=== PATIENT | male | born 1950 | race Two or more races ===

== ENCOUNTER → 2023-05-18 07:10 | Outpatient (REF) | payer MEDICARE, OTHER, SELFPAY ==
[2023-05-18 10:34] LABS: ALT (SGPT) 23 U/L (0-50); AST (SGOT) 24 U/L (17-59); Albumin 3.7 g/dl (3.5-5.0); Alkaline Phosphatase 47 U/L (38-126); Blood Urea Nitrogen 11 mg/dl (9-20); Calcium 9.2 mg/dl (8.4-10.2); Carbon Dioxide 31 mmol/L (22-30); Chloride 100 mmol/L (98-107); Glucose 103 mg/dl (70-99); Potassium 4.2 mmol/L (3.5-5.1); Sodium 138 mmol/L (135-145); Total Bilirubin 1.1 mg/dl (0.2-1.3); Total Protein 6.2 g/dl (6.3-8.2); eGFR > 60.00
[2023-05-18 10:37] LABS: % Basophils 0.4 % (0-2); % Eosinophils 4.8 % (0-6); % Immature Granulocytes 0.4 % (0-0.5); % Lymphocytes 38.8 % (20.5-51.1); % Monocytes 9.7 % (1.7-9.3); % Neutrophils 45.9 % (42.2-75.2); Absolute Eosinophils 0.4 10^3/uL (0-0.7); Absolute Lymphocytes 2.9 10^3/uL (1.2-3.4); Absolute Monocytes 0.7 10^3/uL (0.1-0.6); Absolute Neutrophils 3.5 10^3/uL (1.4-6.5); Hematocrit 47.9 % (39.0-52.0); Hemoglobin 16.1 g/dL (13.0-18.0); Mean Corp Hgb Conc. 33.6 g/dL (33.0-37.0); Mean Corpuscular Hgb 29.9 pg (27.0-31.0); Mean Corpuscular Volume 88.9 fL (80.0-94.0); Mean Platelet Volume 11.3 fL (7.4-10.4); Nucleated Red Blood Cells % 0 % (-); Platelet Count 135 10^3/uL (130-400); Red Blood Cell Count 5.39 10^6/uL (4.70-6.10); Red Cell Dist. Width 14.4 % (11.5-14.5); White Blood Cell Count 7.5 10^3/uL (4.8-10.8)
[2023-05-18 11:23] LABS: Erythrocyte Sed Rate 7 mm/hour (0-20)
== END ==
LOC: HWLAB 07:10
PROVIDERS: ATTENDING PHYSICIAN Internal Medicine Rheumatology; FAMILY PHYSICIAN Family Medicine
DX: M31.6 Other giant cell arteritis (principal)
CPT/HCPCS: 36415; 80053; 85025; 85652; 86140

== ENCOUNTER → 2023-06-05 09:34 | Outpatient (REF) | payer MEDICARE, OTHER, SELFPAY ==
[2023-06-05 14:05] LABS: PSA, Total - Diagnostic 2.38 ng/ml (0.0-4.0)
== END ==
LOC: HWLAB 09:34
PROVIDERS: ATTENDING PHYSICIAN Surgery; FAMILY PHYSICIAN Family Medicine
DX: Z12.5 Encounter for screening for malignant neoplasm of prostate (principal); N40.1 Benign prostatic hyperplasia with lower urinary tract symptoms
CPT/HCPCS: 36415; 84153

== ENCOUNTER → 2023-06-27 08:31 | Outpatient (REF) | payer MEDICARE, OTHER, SELFPAY | LOC: HWRAD 08:31 | PROVIDERS: ATTENDING PHYSICIAN Internal Medicine Critical Care Medicine; FAMILY PHYSICIAN Family Medicine | DX: Z87.891 Personal history of nicotine dependence (principal) | CPT/HCPCS: 71271 ==

== ENCOUNTER → 2023-10-06 06:41 | Outpatient (REF) | payer MEDICARE, OTHER, SELFPAY ==
[2023-10-06 10:14] LABS: % Basophils 0.4 % (0-2); % Eosinophils 4.4 % (0-6); % Immature Granulocytes 0.6 % (0-0.5); % Lymphocytes 36.2 % (20.5-51.1); % Monocytes 8.3 % (1.7-9.3); % Neutrophils 50.1 % (42.2-75.2); Absolute Eosinophils 0.3 10^3/uL (0-0.7); Absolute Immature Granulocytes 0.1 10^3/uL (0-0.05); Absolute Lymphocytes 2.8 10^3/uL (1.2-3.4); Absolute Monocytes 0.6 10^3/uL (0.1-0.6); Absolute Neutrophils 3.9 10^3/uL (1.4-6.5); Hematocrit 46.2 % (39.0-52.0); Hemoglobin 15.8 g/dL (13.0-18.0); Mean Corp Hgb Conc. 34.2 g/dL (33.0-37.0); Mean Corpuscular Hgb 30.2 pg (27.0-31.0); Mean Corpuscular Volume 88.3 fL (80.0-94.0); Mean Platelet Volume 11.1 fL (7.4-10.4); Nucleated Red Blood Cells % 0 % (-); Platelet Count 150 10^3/uL (130-400); Red Blood Cell Count 5.23 10^6/uL (4.70-6.10); Red Cell Dist. Width 14.1 % (11.5-14.5); White Blood Cell Count 7.7 10^3/uL (4.8-10.8)
[2023-10-06 10:27] LABS: Erythrocyte Sed Rate 7 mm/hour (0-20)
[2023-10-06 10:35] LABS: ALT (SGPT) 23 U/L (0-50); AST (SGOT) 26 U/L (17-59); Albumin 4.1 g/dl (3.5-5.0); Alkaline Phosphatase 53 U/L (38-126); Blood Urea Nitrogen 12 mg/dl (9-20); Calcium 9.2 mg/dl (8.4-10.2); Carbon Dioxide 28 mmol/L (22-30); Chloride 104 mmol/L (98-107); Glucose 101 mg/dl (70-99); Potassium 4.4 mmol/L (3.5-5.1); Sodium 139 mmol/L (135-145); Total Bilirubin 0.7 mg/dl (0.2-1.3); Total Protein 6.5 g/dl (6.3-8.2); eGFR > 60.00
[2023-10-06 10:37] LABS: C-Reactive Protein < 5.00 mg/L (0.0-10.00)
== END ==
LOC: HWLAB 06:41
PROVIDERS: ATTENDING PHYSICIAN Internal Medicine Rheumatology; FAMILY PHYSICIAN Family Medicine
DX: M31.6 Other giant cell arteritis (principal)
CPT/HCPCS: 36415; 80053; 85025; 85652; 86140

== ENCOUNTER → 2023-11-13 06:25 | Outpatient (REF) | payer MEDICARE, OTHER, SELFPAY ==
[2023-11-13 10:29] LABS: ALT (SGPT) 37 U/L (0-50); AST (SGOT) 47 U/L (17-59); Albumin 3.9 g/dl (3.5-5.0); Alkaline Phosphatase 53 U/L (38-126); Blood Urea Nitrogen 16 mg/dl (9-20); Calcium 9.1 mg/dl (8.4-10.2); Carbon Dioxide 30 mmol/L (22-30); Chloride 105 mmol/L (98-107); Glucose 91 mg/dl (70-99); HDL Cholesterol 51 mg/dl; LDL Cholesterol, Calculated 73 mg/dl; Potassium 4.4 mmol/L (3.5-5.1); Sodium 139 mmol/L (135-145); Total Bilirubin 0.6 mg/dl (0.2-1.3); Total Cholesterol 137 mg/dl (50-199); Total Protein 6.3 g/dl (6.3-8.2); Triglyceride 66 mg/dl (10-149); Very Low Density Lipoprotein 13 mg/dl (0-30); eGFR > 60.00
[2023-11-13 11:23] LABS: Glycohemoglobin (HgbA1c) 5.7 % (4.0-5.6)
== END ==
LOC: HWLAB 06:25
PROVIDERS: ATTENDING PHYSICIAN Family Medicine
DX: E78.2 Mixed hyperlipidemia (principal); R73.9 Hyperglycemia, unspecified
CPT/HCPCS: 36415; 80053; 80061; 83036

== ENCOUNTER 2024-01-18 21:09 | Emergency (ER) | payer MEDICARE, OTHER, SELFPAY ==
[2024-01-18 21:12] VITALS: BP 127/69
--- NOTE | 2024-01-18 22:07 | ED.GENMED ---
History of Present Illness
General
Chief Complaint: Heart Rate Problem
Source: patient
Exam Limitations: none
Time Seen by Provider: 01/18/24 21:35
Nursing documentation reviewed up to this point in time: agreed with
History of Present Illness
History of Present Illness:
Patient is a 73 old male with past medical history of paroxysmal A-fib hypertension hyperlipidemia presents to the ER for evaluation. Patient reports after dinner this evening he felt dizzy and took his pulse with his bp machine and pulse ox and
it was between 45 and 70. He reports he felt his heart beating' hard ,' but not fast. He denies any chest pain nausea vomiting shortness of breath.
Past History
Past History
ED Past Medical History: HTN, Hypercholesterolemia and Other (Morbidly obese); Negative CAD
ED Past Surgical History: Orthopedic (Low back)
Social History
Tobacco: Smoker
Alcohol: None
Drug: None
Personal:
Living: with family
Employment: Employed
Family History
Family History: Hypertension
Review of Systems
Review of Systems
Allergies reviewed?: Yes
All Other Systems: ROS reviewed and negative except as documented in HPI and ROS
Constitutional: Reports no symptoms; Denies fever
Respiratory: Reports no symptoms; Denies trouble breathing
Cardiac: Reports other (felt his heard beating 'hard' and 'pulse was slo' ); Denies chest pain
ABD/GI: Reports no symptoms
Musculoskeletal: Reports no symptoms
Skin: Reports no symptoms
Neurological: Reports no symptoms
Psychiatric: Reports no symptoms
Phy Exam
General Physical Exam
General Presentation: no apparent distress
General age: appears stated age
General Skin: warm and dry
General Habitus: normal
General Mental: alert
General Hydration: appears well hydrated
Eye Exam
Eye Exam: PERRL and EOMI
Cardiovascular Exam
Cardiovascular Exam: regular rate/rhythm, no murmur, normal peripheral pulses and other (Frequent PVCs)
Pulmonary Exam
Pulmonary Exam: lungs clear and no respiratory distress
Neurological Exam
Neurological Exam: alert and oriented x3
Musculoskeletal Exam
Musculoskeletal Exam: full ROM
Skin Exam
Skin Exam: normal color and warm/dry
Psychiatric Exam
Psychiatric Exam: normal mood/affect
Course
Orders/Labs/Results
Orders:
Orders
01/18/24 21:10
ECG [Electrocardiogram (*1)] Urgent
Reason for Study: Bradycardia / Tachycardia
Cardiology Consult: Unknown
01/18/24 21:11
EKG- Treatment ONCE
01/18/24 22:04
IV Insert/Care/Rem.- Treatment PRN
01/18/24 22:07
Cardiac Monitoring- Treatment ONCE
01/18/24 22:29
Complete Blood Count/With Diff Urgent
Comprehensive Metabolic Panel Urgent
TSH Urgent
Abnormal Lab Results
01/18/24
22:29
Absolute Monos (auto) 0.7 H 10^3/uL
(0.1-0.6)
Immature Gran % 0.6 H %
(0-0.5)
Neutrophils % 41.7 L %
(42.2-75.2)
Monocytes % 10.1 H %
(1.7-9.3)
Carbon Dioxide 31 H mmol/L
(22-30)
Glucose 113 H mg/dl
(70-99)
Total Protein 6.0 L g/dl
(6.3-8.2)
01/18/24 22:29
01/18/24 22:29
Vital Signs
Initial and Last Documented VS:
Initial Vital Signs
Temp Pulse Resp BP Pulse Ox
98.1 F 65 18 127/69 97
01/18/24 21:12 01/18/24 21:12 01/18/24 21:12 01/18/24 21:12 01/18/24 21:12
Last Documented Vital Signs
Temp Pulse Resp BP Pulse Ox
98.1 F 76 12 125/68 96
01/18/24 21:12 01/18/24 23:45 01/18/24 23:45 01/18/24 23:30 01/18/24 23:45
MDM/Problems Addressed
Differential Diagnosis Includes:
Not limited to arrhythmia, A-fib
MDM/Problems Addressed:
Patient is a 73-year-old male who present to the ER for evaluation. Patient reports he was having a pounding sensation of his heart beat however did not feel that his heartbeat was racing. He had no associated chest pain. Patient presents today
awake alert no acute distress he was found to be in bigeminy on my exam he had no chest pain. He is afebrile with normal white count stable hemoglobin, normal electrolytes including normal sodium and potassium. Patient isabel in no acute distress
on reexam patient is now in normal sinus rhythm and has remained in normal sinus rhythm.
Will DC with outpatient cardiology follow-up. Pt has hx of atrial fibrillation and is on Pradaxa.
Chronic conditions affecting care:
History of paroxysmal A-fib
*Pulse Oximetry
Patient hypoxic: no
*EKG
Interpreted by ED Provider?: Yes
Interpretation: normal
Comparison EKG: changes noted (pvcs now present )
Heart Rate: 76
Rate: normal
Rhythm: sinus and PVC's
Ischemia: no ischemia
*Critical Care Note
Total Time (30-74mins, 75-104mins- exclusive of procedures): Not Applicable
ED Attending Note
-
Portions of this chart may have been created with voice recognition software.� Occasional wrong word or��sound alike� substitutions may have occurred due to the inherent limitations of voice recognition software.
Discharge Plan
Departure
Patient Disposition: Home (Routine Discharge)
Date of Disposition: 01/19/24
Time of Disposition: 00:15
Patient with high blood pressure during this ER visit?: No
Condition: Fair
Covid-19: Not Applicable
Discharge Problem:
PVC (premature ventricular contraction)
Instructions: Ventricular premature beats
Prescriptions:
No Action
calcium carbonate-vitamin D3 [Oyster Shell Calcium-Vit D3] 500 MG tablet
1 tab PO DAILY
tamsulosin 0.4 MG capsule
0.4 mg PO BID
polyethylene glycol 3350 [Miralax] 17 gram Powder In Packet
17 g PO QPM
losartan 100 mg Tablet
100 mg PO BID
rosuvastatin 20 mg Tablet
20 mg PO DAILY
dabigatran etexilate [Pradaxa] 150 mg Capsule
150 mg PO BID
Actemra 162 MG/0.9 ML syringe
162 mg SQ Q3W
metoprolol succinate 50 mg tablet extended release 24 hr
50 mg PO BID
pantoprazole [Protonix] 40 mg tablet,delayed release (DR/EC)
40 mg PO BID Qty: 60 0RF
pantoprazole 40 mg tablet,delayed release (DR/EC)
40 mg PO BID 14 Days Qty: 28 0RF
sucralfate [Carafate] 100 mg/mL suspension
10 ml PO QID Qty: 1000 0RF
Referrals:
Caleb Morgan MD [Family Provider] -
Sae Palomo MD [Active] -
Activity Restrictions/Additional Instructions:
As discussed you are having premature ventricular contractions which was the cause of your symptoms however that has since resolved. Please call your patient services assistant office tomorrow morning for an appointment for reevaluation the next several days and
return if any worsening of symptoms.
Interventions
Interventions:
*Risk Screen - Suicide Last Done: 01/18/24 21:11
*General Assessment Last Done: 01/18/24 21:12
*Neglect/Abuse Screening Last Done: 01/18/24 21:12
ED- Fall Risk Assessment Last Done: 01/18/24 22:31
*ED COVID-19 Vaccine History Last Done: 01/18/24 22:31
ED- Cardiac Assessment Last Done: 01/18/24 22:31
ED- Pulmonary Assessment Last Done: 01/18/24 22:31
Discharge Date and Time
Print Language: LAO
[2024-01-18 22:30] VITALS: BP 124/58
[2024-01-18 22:31] VITALS: BMI 33.4
[2024-01-18 22:50] LABS: % Basophils 0.3 % (0-2); % Eosinophils 3.4 % (0-6); % Immature Granulocytes 0.6 % (0-0.5); % Lymphocytes 43.9 % (20.5-51.1); % Monocytes 10.1 % (1.7-9.3); % Neutrophils 41.7 % (42.2-75.2); Absolute Eosinophils 0.2 10^3/uL (0-0.7); Absolute Lymphocytes 2.8 10^3/uL (1.2-3.4); Absolute Monocytes 0.7 10^3/uL (0.1-0.6); Absolute Neutrophils 2.7 10^3/uL (1.4-6.5); Hematocrit 42.8 % (39.0-52.0); Hemoglobin 14.8 g/dL (13.0-18.0); Mean Corp Hgb Conc. 34.6 g/dL (33.0-37.0); Mean Corpuscular Hgb 29.2 pg (27.0-31.0); Mean Corpuscular Volume 84.4 fL (80.0-94.0); Nucleated Red Blood Cells % 0 % (-); Platelet Count 175 10^3/uL (130-400); Red Blood Cell Count 5.07 10^6/uL (4.70-6.10); Red Cell Dist. Width 13.8 % (11.5-14.5); White Blood Cell Count 6.5 10^3/uL (4.8-10.8)
[2024-01-18 23:00] VITALS: BP 112/56
[2024-01-18 23:13] LABS: ALT (SGPT) 23 U/L (0-50); AST (SGOT) 27 U/L (17-59); Albumin 3.7 g/dl (3.5-5.0); Alkaline Phosphatase 51 U/L (38-126); Blood Urea Nitrogen 17 mg/dl (9-20); Calcium 9.2 mg/dl (8.4-10.2); Carbon Dioxide 31 mmol/L (22-30); Chloride 102 mmol/L (98-107); Estimated Creatinine Clearance 87 ml/min; Glucose 113 mg/dl (70-99); Potassium 4.2 mmol/L (3.5-5.1); Sodium 139 mmol/L (135-145); Total Bilirubin 0.4 mg/dl (0.2-1.3); eGFR > 60.00
[2024-01-18 23:30] VITALS: BP 125/68
[2024-01-18 23:43] LABS: TSH 1.22 uIU/ml (0.47-4.68)
[2024-01-19] VITALS: BP 113/61
[2024-01-19 00:30] VITALS: BP 131/73
== END 2024-01-19 01:32 | disposition home or self-care (01) ==
LOC: EMR 21:09
PROVIDERS: Nurse Practitioner; EMERGENCY PHYSICIAN Emergency Medicine; FAMILY PHYSICIAN Family Medicine
DX: I49.3 Ventricular premature depolarization (principal); I48.0 Paroxysmal atrial fibrillation; I10 Essential (primary) hypertension; E78.00 Pure hypercholesterolemia, unspecified; E66.01 Morbid (severe) obesity due to excess calories; F17.200 Nicotine dependence, unspecified, uncomplicated; Z79.01 Long term (current) use of anticoagulants; Z82.49 Family history of ischemic heart disease and other diseases of the circulatory system
CPT/HCPCS: 99283; 80053; 84443; 85025; 93005

== ENCOUNTER 2024-01-22 12:04 | Emergency (ER) | payer MEDICARE, OTHER, SELFPAY ==
[2024-01-22 12:10] VITALS: BP 125/64
[2024-01-22 12:34] VITALS: BMI 33.9
--- NOTE | 2024-01-22 12:37 | ED.GENMED ---
History of Present Illness
General
Chief Complaint: Heart Rate Problem
Source: patient
Exam Limitations: none
Time Seen by Provider: 01/22/24 12:23
Nursing documentation reviewed up to this point in time: agreed with
History of Present Illness
History of Present Illness:
73-year-old male presents emergency room complaining of low heart rate and dizziness. He states his vision has been blurry occasionally. He denies chest pain but complains of shortness of breath with minimal activity. He came 3 days ago for same
complaint, and followed up with Dr. Palomo. He arranged a nuclear stress test, and placed a 7-day cardiac cath tech.
Past History
Past History
ED Past Medical History: HTN, Hypercholesterolemia and Other (Morbidly obese); Negative CAD
ED Past Surgical History: Orthopedic (Low back)
Social History
Tobacco: Smoker
Alcohol: None
Drug: None
Personal:
Living: with family
Employment: Employed
Family History
Family History: Hypertension
Review of Systems
Review of Systems
Allergies reviewed?: Yes
All Other Systems: Not applicable
Constitutional: Reports no symptoms
EENT: Reports no symptoms
Respiratory: Reports trouble breathing
Cardiac: Reports palpitations
ABD/GI: Reports no symptoms
: Reports no symptoms
Musculoskeletal: Reports no symptoms
Skin: Reports no symptoms
Neurological: Reports no symptoms
Endocrine: Reports no symptoms
Hematologic/Lymphatic: Reports no symptoms
Psychiatric: Reports no symptoms
Phy Exam
Physical Exam
Physical Exam:
Physical Exam
General: no apparent distress, not acutely ill
Neck: supple. no meningeal signs. normal posterior pharynx
Heart: s1/s2 regular rate and rhythm, no murmur. equal radial
pulses.
HEENT: Pupils equal round reactive to light, EOMI
Lungs: no acute respiratory distress. clear bilaterally
Abdomen: normal bowel sounds. not tender. no CVAT
Neuro: alert and oriented. no focal neurological deficits cranial nerves II through XII intact
Skin: no rash
Psychiatric: well kept. interactive and cooperative
Extremities: no edema. no calf tenderness. negative homans. good distal pulses
Course
Orders/Labs/Results
Orders:
Orders
01/22/24 12:04
Electrocardiogram (*1) Urgent
Reason for Study: Bradycardia / Tachycardia
EKG- Treatment ONCE
01/22/24 12:35
CR Chest - 2 Views Urgent
Comment:
Reason For Exam: short of breath
01/22/24 12:36
IV Insert/Care/Rem.- Treatment PRN
01/22/24 12:42
CMP [Comprehensive Metabolic Panel] Urgent
Complete Blood Count/With Diff Urgent
Magnesium Urgent
Pro-BNP [NT-proBNP] Urgent
Troponin I Urgent
Abnormal Lab Results
01/22/24
12:42
MPV 10.7 H fL
(7.4-10.4)
Glucose 135 H mg/dl
(70-99)
Total Protein 6.1 L g/dl
(6.3-8.2)
01/22/24 12:42
01/22/24 12:42
Vital Signs
Initial and Last Documented VS:
Initial Vital Signs
Temp Pulse Resp BP Pulse Ox
99.7 F 41 18 125/64 98
01/22/24 12:10 01/22/24 12:10 01/22/24 12:10 01/22/24 12:10 01/22/24 12:10
Last Documented Vital Signs
Temp Pulse Resp BP Pulse Ox
99.7 F 64 12 108/69 98
01/22/24 12:10 01/22/24 14:43 01/22/24 14:43 01/22/24 15:00 01/22/24 12:10
MDM/Problems Addressed
Differential Diagnosis Includes:
Dysrhythmia, PVCs
MDM/Problems Addressed:
73-year-old male with PVCs, unclear etiology. Discussed with cardiology, who will perform nuclear stress test on Monday.
Chronic conditions affecting care: HTN and Arrhythmia
Acute Exacerbation and/or Progression of Chronic Illness: HTN and Arrhythmia
*Radiology
Radiology exam reviewed: radiology read reviewed (Chest x-ray no acute findings)
*Pulse Oximetry
Patient hypoxic: no
*EKG
Interpreted by ED Provider?: Yes
EKG Intrepretation Date: 01/22/24
EKG Intrepretation Time: 12:07
Interpretation: abnormal
Comparison EKG: no changes
Heart Rate: 85
Rate: normal
Rhythm: sinus and PVC's
[place]: normal axis
Interval: normal interval
QRS Pattern: normal QRS
Ischemia: no ischemia
*Sonar Technician Interpretation
Rate: normal
Interpretation: abnormal
Heart Rate: 75
Rhythm: sinus and PVC's
*Critical Care Note
Total Time (30-74mins, 75-104mins- exclusive of procedures): Not Applicable
Patient Management
Social determinants of health affecting care: Living situation
Discussion with other providers: Vocational Trainer (Dr. More, production analyst)
Escalation/DeEscalation of care consider admission/obs:
Admit not indicated
ED Attending Note
-
Portions of this chart may have been created with voice recognition software.� Occasional wrong word or��sound alike� substitutions may have occurred due to the inherent limitations of voice recognition software.
Discharge Plan
Departure
Patient Disposition: Home (Routine Discharge)
Date of Disposition: 01/22/24
Time of Disposition: 15:17
Patient with high blood pressure during this ER visit?: No
Condition: Good
Discharge Problem:
Frequent PVCs
Instructions: Ventricular premature beats, Palpitations (DC), BLOOD PRESSURE
Prescriptions:
No Action
calcium carbonate-vitamin D3 [Oyster Shell Calcium-Vit D3] 500 MG tablet
1 tab PO DAILY
tamsulosin 0.4 MG capsule
0.4 mg PO BID
polyethylene glycol 3350 [Miralax] 17 gram Powder In Packet
17 g PO QPM
losartan 100 mg Tablet
100 mg PO BID
rosuvastatin 20 mg Tablet
20 mg PO DAILY
dabigatran etexilate [Pradaxa] 150 mg Capsule
150 mg PO BID
Actemra 162 MG/0.9 ML syringe
162 mg SQ Q3W
metoprolol succinate 50 mg tablet extended release 24 hr
50 mg PO BID
pantoprazole [Protonix] 40 mg tablet,delayed release (DR/EC)
40 mg PO BID Qty: 60 0RF
pantoprazole 40 mg tablet,delayed release (DR/EC)
40 mg PO BID 14 Days Qty: 28 0RF
sucralfate [Carafate] 100 mg/mL suspension
10 ml PO QID Qty: 1000 0RF
Referrals:
Caleb Morgan MD [Family Provider] -
Activity Restrictions/Additional Instructions:
-Your stress test has been rescheduled from 02/05/24 to this 01/24/24 at 7:30 AM in the cardiac services department at [facility]. Please note the location change. Please arrive in the main lobby and register about 15 minutes
before your test.
-Do NOT consume ANY caffeine for 24 hours prior to test.
-Do not eat or drink on the morning of the test except sips of water for taking your medications.
-Try not to take metoprolol (Lopressor) the night before or morning of the test, this will help you reach your target heart rate on the treadmill.
Interventions
Interventions:
*Risk Screen - Suicide Last Done: 01/22/24 13:13
*General Assessment Last Done: 01/22/24 13:13
*Neglect/Abuse Screening Last Done: 01/22/24 13:13
ED- Fall Risk Assessment Last Done: 01/22/24 12:35
*ED COVID-19 Vaccine History Last Done: 01/22/24 12:34
*Nursing Disposition Last Done: 01/22/24 15:42
ED- Cardiac Assessment Last Done: 01/22/24 12:47
ED- Pulmonary Assessment Last Done: 01/22/24 12:47
Discharge Date and Time
Discharge Date/Time: 01/22/24 15:45
Print Language: SAMMARINESE
[2024-01-22 13:00] VITALS: BP 105/71
[2024-01-22 13:07] LABS: ALT (SGPT) 31 U/L (0-50); AST (SGOT) 38 U/L (17-59); Albumin 3.8 g/dl (3.5-5.0); Alkaline Phosphatase 45 U/L (38-126); Blood Urea Nitrogen 15 mg/dl (9-20); Calcium 8.7 mg/dl (8.4-10.2); Carbon Dioxide 24 mmol/L (22-30); Chloride 105 mmol/L (98-107); Estimated Creatinine Clearance 98 ml/min; Glucose 135 mg/dl (70-99); Magnesium 1.9 mg/dl (1.6-2.3); Potassium 4.3 mmol/L (3.5-5.1); Sodium 140 mmol/L (135-145); Total Bilirubin 0.4 mg/dl (0.2-1.3); Total Protein 6.1 g/dl (6.3-8.2); eGFR > 60.00
[2024-01-22 13:10] VITALS: BP 105/71
[2024-01-22 13:17] LABS: NT-proBNP 1000 pg/ml; Troponin I < 0.012 ng/ml
[2024-01-22 13:28] LABS: % Basophils 0.5 % (0-2); % Eosinophils 4.2 % (0-6); % Immature Granulocytes 0.5 % (0-0.5); % Lymphocytes 38.4 % (20.5-51.1); % Monocytes 8.4 % (1.7-9.3); Absolute Eosinophils 0.3 10^3/uL (0-0.7); Absolute Lymphocytes 2.5 10^3/uL (1.2-3.4); Absolute Monocytes 0.5 10^3/uL (0.1-0.6); Absolute Neutrophils 3.1 10^3/uL (1.4-6.5); Hematocrit 45.1 % (39.0-52.0); Hemoglobin 15.5 g/dL (13.0-18.0); Mean Corp Hgb Conc. 34.4 g/dL (33.0-37.0); Mean Corpuscular Hgb 29.4 pg (27.0-31.0); Mean Corpuscular Volume 85.6 fL (80.0-94.0); Mean Platelet Volume 10.7 fL (7.4-10.4); Nucleated Red Blood Cells % 0 % (-); Platelet Count 169 10^3/uL (130-400); Red Blood Cell Count 5.27 10^6/uL (4.70-6.10); Red Cell Dist. Width 13.8 % (11.5-14.5); White Blood Cell Count 6.4 10^3/uL (4.8-10.8)
[2024-01-22 14:00] VITALS: BP 110/71
[2024-01-22 15:00] VITALS: BP 108/69
== END 2024-01-22 15:45 | disposition home or self-care (01) ==
LOC: EMR 12:04
PROVIDERS: Emergency Medicine; EMERGENCY PHYSICIAN Emergency Medicine; FAMILY PHYSICIAN Family Medicine
DX: I49.3 Ventricular premature depolarization (principal); R00.1 Bradycardia, unspecified; R42 Dizziness and giddiness; I10 Essential (primary) hypertension; E78.00 Pure hypercholesterolemia, unspecified; E66.01 Morbid (severe) obesity due to excess calories; F17.200 Nicotine dependence, unspecified, uncomplicated; Z82.49 Family history of ischemic heart disease and other diseases of the circulatory system
CPT/HCPCS: 99283; 71046; 80053; 83735; 83880; 84484; 85025; 93005

== ENCOUNTER → 2024-01-24 07:22 | Outpatient (REF) | payer MEDICARE, OTHER, SELFPAY | LOC: RCS 07:22 | PROVIDERS: ATTENDING PHYSICIAN Internal Medicine Cardiovascular Disease; FAMILY PHYSICIAN Family Medicine | DX: I48.0 Paroxysmal atrial fibrillation (principal) | CPT/HCPCS: 78452; 93017; A9500; J2785 ==

== ENCOUNTER 2024-02-08 10:30 | Inpatient (IN) | payer MEDICARE, OTHER, SELFPAY ==
[2024-02-05] VITALS (9 sets, daily range): BP systolic 114–140; BP diastolic 57–82; BMI 32.6
--- NOTE | 2024-02-05 12:14 | ED.GENMED ---
History of Present Illness
<Tita Valdovinos MD, Resident - Last Filed: 02/05/24 13:58>
General
Chief Complaint: Chest Pain
Source: patient and family
Exam Limitations: none
Time Seen by Provider: 02/05/24 11:56
Nursing documentation reviewed up to this point in time: agreed with
Travel History
Have you traveled to any high risk areas for coronavirus over the past 14 days?: No
Have you had any contact with someone who has COVID-19?: No
Do you have any symptoms of coronavirus? Fever > 100 degrees, chills, cough, shortness of breath, sore throat, loss of taste or smell, muscle aches, or headache?: No
History of Present Illness
History of Present Illness:
73-year-old male with PMHx significant forAtrial fibrillation, hypertension, hyperlipidemia, LAI on CPAP, BPH, nephrolithiasis presents to the hospital for 3 weeks onset of chest pain and shortness of breath. He was in the ER 3 weeks ago for
similar complaints. He describes his chest pain as midsternal pressure radiating into his left chest for about 8/10 in intensity, and as of 10 pounds sitting on his chest. His chest pain does not radiate into the jaw or left arm. It is associated
with exertional dyspnea which worsens upon minimal exertion, and occasional heart racing. He also had dizziness over the last 3 days, occasional blurring of vision when his symptoms persist for longer time. He noticed to have some orthopnea and
PND over the last 3 weeks beginning the onset of his symptoms.
Prior to this 3 weeks he never had any shortness of breath or chest pain.
Of note during his most recent ER visit he was seen by coal mill operator and was evaluated with nuclear stress test which was classified as a moderate risk study.
He denies having any weakness, fevers, chills, paresthesias, nausea, vomiting.
Past History
<Tita Valdovinos MD, Resident - Last Filed: 02/05/24 13:58>
Past History
ED Past Medical History: HTN, Hypercholesterolemia and Other (Morbidly obese); Negative CAD
ED Past Surgical History: Orthopedic (Low back)
Social History
Tobacco: Smoker (2 packs of cigarettes for 30 years, 7 to 8 cigarettes per last 20 years.)
Alcohol: None
Drug: None
Personal:
Living: with family
Employment: Employed
Family History
Family History: Hypertension
Review of Systems
<Tita Valdovinos MD, Resident - Last Filed: 02/05/24 13:58>
Review of Systems
Allergies reviewed?: Yes
Other source history: other (Friend on bedside.)
Constitutional: Reports fatigue; Denies fever or chills
EENT: Reports no symptoms
Respiratory: Reports trouble breathing
Cardiac: Reports chest pain, diaphoresis and palpitations
ABD/GI: Reports no symptoms
: Reports no symptoms
Musculoskeletal: Reports no symptoms
Skin: Reports no symptoms
Neurological: Reports dizzy
Endocrine: Reports no symptoms
Hematologic/Lymphatic: Reports no symptoms
Psychiatric: Reports no symptoms
Phy Exam
<Tita Valdovinos MD, Resident - Last Filed: 02/05/24 13:58>
General Physical Exam
General Presentation: well appearing and no apparent distress
General Skin: warm
General Habitus: normal
General Mental: alert
ENT Exam
ENT Exam: EOMI and TM's normal
Eye Exam
Eye Exam: PERRL and EOMI
Cardiovascular Exam
Cardiovascular Exam: no edema, no gallop, no JVD, no murmur and occasionally irregular
Heart Sounds: normal
MARYLOU Score
Is patient's age greater than or equal to 65 years: Yes
Does patient have 3 or more CAD risk factors?: Yes
Does patient have known CAD: No
Has patient used ASA in past seven days?: Yes
Has patient had severe angina in past 24 hrs?: Yes
Are patient's cardiac markers elevated?: No
Are there ST changes greater 0.05mm?: No
Result score?: 4
Pulmonary Exam
Pulmonary Exam: lungs clear, no rales, no rhonchi and other (crackles present)
Breath Sounds: Crackles: left lower and right lower
Gastrointestinal Exam
Gastrointestinal Exam: normal bowel sounds, non tender, soft and non distended
Palpation: generalized: No tenderness
Neurological Exam
Neurological Exam: alert, oriented x3, CN II-XII intact, no motor deficits, normal reflexs and no sensory deficits
NIH Stroke Score
Level of Consciousness: 0 - Alert
LOC questions: 0-Answers both correctly
LOC Commands: 0-Performs both correctly
Best Gaze: 0-Normal
Visual Justice: 0=Normal, no visual loss
Facial palsy: 0=Normal, symmetrical
Motor - Left Arm: 0=No drift 10 seconds
Motor - Right Le-No drift 5 seconds
Motor - Left Le-No drift 5 seconds
Limb Ataxia: 0-Absent
Sensation: 0-Normal
Best Language: 0-No aphasia
Dysarthria: 0-Normal
Extinction and Inattention: 0-No abnormality
Scores
<Tita Valdovinos MD, Resident - Last Filed: 02/05/24 13:58>
NIH Stroke Score
Level of Consciousness: 0 - Alert
LOC Questions: 0-Answers both correctly
LOC Commands: 0-Performs both correctly
Best Horizontal Gaze: 0-Normal
Visual Justice: 0=Normal, no visual loss
Facial Palsy: 0=Normal, symmetrical
Motor - Right Arm: 0=No drift 10 seconds
Motor - Left Arm: 0=No drift 10 seconds
Motor - Right Le-No drift 5 seconds
Motor - Left Le-No drift 5 seconds
Limb Ataxia: 0-Absent
Sensation: 0-Normal
Best Language: 0-No aphasia
Dysarthria: 0-Normal
Extinction and Inattention: 0-No abnormality
Total Score:: 0
Heart Score for Chest Pain Patients
STEMI patient?: No
History: Highly Suspicious
ECG: Nonspecific Repolarization
Age: >/= 65 years
Risk Factors: >/= 3 Risk Factors or History of CAD
Troponin: </= Normal Limit
Heart Score for Chest Pain Patients: 7
Heart Score Risk: 72.7 % MACE over next 6 weeks
Course
<Tita Valdovinos MD, Resident - Last Filed: 02/05/24 13:58>
Orders/Labs/Results
Orders:
Orders
02/05/24 11:05
ECG [Electrocardiogram (*1)] Urgent
Reason for Study: Chest Pain
EKG- Treatment ONCE
02/05/24 11:59
CMP [Comprehensive Metabolic Panel] Urgent
Complete Blood Count/With Diff Urgent
NT-proBNP Urgent
Comment: ADD ON
Troponin I Urgent
02/05/24 12:43
Cardiac Monitoring- Treatment ONCE
CR Chest - 2 Views Urgent
Comment:
Reason For Exam: b/l Crackles on auscultation
02/05/24 12:45
NT-proBNP Urgent
02/05/24 12:52
Add On- LAB Urgent
Tests Added?: pro-BNP
02/05/24 15:58
Troponin I Urgent
Abnormal Lab Results
02/05/24
11:59
Monocytes % 9.5 H %
(1.7-9.3)
Glucose 115 H mg/dl
(70-99)
02/05/24 11:59
02/05/24 11:59
Vital Signs
Initial and Last Documented VS:
Initial Vital Signs
Temp Pulse Resp BP Pulse Ox
98.5 F 51 20 133/68 99
02/05/24 11:10 02/05/24 11:10 02/05/24 11:10 02/05/24 11:10 02/05/24 11:10
Last Documented Vital Signs
Temp Pulse Resp BP Pulse Ox
98.5 F 94 18 124/62 98
02/05/24 11:10 02/05/24 12:45 02/05/24 12:45 02/05/24 12:00 02/05/24 12:45
Comment
Comment:
Highly likely to be unstable angina.
Several risk factors-greater than 47-dngu-hbns smoking history, hypertension, hyperlipidemia.
PVCs with ventricular bigeminy on EKG.
Troponins and proBNP pending.
Recent nuclear stress test-moderate risk for MO.
<Car Rodriguez MD - Last Filed: 02/05/24 13:34>
Orders/Labs/Results
Orders:
Orders
02/05/24 11:05
ECG [Electrocardiogram (*1)] Urgent
Reason for Study: Chest Pain
EKG- Treatment ONCE
02/05/24 11:59
CMP [Comprehensive Metabolic Panel] Urgent
Complete Blood Count/With Diff Urgent
NT-proBNP Urgent
Comment: ADD ON
Troponin I Urgent
02/05/24 12:43
Cardiac Monitoring- Treatment ONCE
CR Chest - 2 Views Urgent
Comment:
Reason For Exam: b/l Crackles on auscultation
02/05/24 12:45
NT-proBNP Urgent
02/05/24 12:52
Add On- LAB Urgent
Tests Added?: pro-BNP
02/05/24 15:58
Troponin I Urgent
Abnormal Lab Results
02/05/24
11:59
Monocytes % 9.5 H %
(1.7-9.3)
Glucose 115 H mg/dl
(70-99)
02/05/24 11:59
02/05/24 11:59
Vital Signs
Initial and Last Documented VS:
Initial Vital Signs
Temp Pulse Resp BP Pulse Ox
98.5 F 51 20 133/68 99
02/05/24 11:10 02/05/24 11:10 02/05/24 11:10 02/05/24 11:10 02/05/24 11:10
Last Documented Vital Signs
Temp Pulse Resp BP Pulse Ox
98.5 F 94 18 124/62 98
02/05/24 11:10 02/05/24 12:45 02/05/24 12:45 02/05/24 12:00 02/05/24 12:45
<Tita Valdovinos MD, Resident - Last Filed: 02/05/24 13:58>
MDM/Problems Addressed
Differential Diagnosis Includes:
Unstable angina.
MDM/Problems Addressed:
Patient took Pradaxa in the morning today.
Chronic conditions affecting care: HTN, Arrhythmia and COPD
<Tita Valdovinos MD, Resident - Last Filed: 02/05/24 13:58>
*Radiology
Radiology exam reviewed: preliminary read by ED provider and radiology read reviewed
*Pulse Oximetry
Patient hypoxic: no
*EKG
Interpreted by ED Provider?: Yes
EKG Intrepretation Date: 02/05/24
EKG Intrepretation Time: 12:00
Interpretation: abnormal
Comparison EKG: changes noted
Heart Rate: 100
Rate: tachycardiac
Rhythm: PVC's
Nicholls: normal axis
Interval: normal interval
QRS Pattern: normal QRS
Ischemia: no ischemia
*Director Of Student Life Interpretation
Rate: tachycardiac
Interpretation: abnormal
Heart Rate: 108
Rhythm: PVC's
*Critical Care Note
Total Time (30-74mins, 75-104mins- exclusive of procedures): Not Applicable
Data Reviewed
Review of Other/Old Records Reveals: Labs, Records, Radiology Studies and Testing
Source: patient, records and other (Friend.)
<Tita Valdovinos MD, Resident - Last Filed: 02/05/24 13:58>
Comment
Comment:
Unstable angina. Admit to the hospital.
ED Attending Note
<Tita Valdovinos MD, Resident - Last Filed: 02/05/24 13:58>
-
Portions of this chart may have been created with voice recognition software.� Occasional wrong word or��sound alike� substitutions may have occurred due to the inherent limitations of voice recognition software.
<Car Rodriguez MD - Last Filed: 02/05/24 13:34>
ED Attending Note
Patient seen and examined by attending physician: Yes
I performed a history and physical exam of patient and discussed management with resident, I reviewed resident's note and agree with documented findings and plan of care.: Yes
ED Attending Note:
Patient with progressive shortness of breath with exertion and chest tightness with exertion. Had a indeterminant nuclear stress test recently. Minimal to no symptoms at rest.
Multiple cardiac risk factors including hypertension cholesterol family history and smoking
On exam patient is nontoxic in no distress. Lungs have some bibasilar rales. Heart regular rate and rhythm. Abdomen warm and dry. Extremities warm and dry. Grossly nonfocal.
EKG with bigeminy. No acute findings.
Impression history is very concerning for unstable angina. Progressive shortness of breath with exertion and chest tightness with exertion. Will admit for further care and cardiac evaluation
Discharge Plan
Departure
Patient Disposition: Admit
Date of Disposition: 02/05/24
Time of Disposition: 13:57
Presentation/result/management discussed w/ accepting MD/DO: Hospitalist
Discharge Problem:
Angina pectoris, unstable
Prescriptions:
No Action
calcium carbonate-vitamin D3 [Oyster Shell Calcium-Vit D3] 500 MG tablet
1 tab PO DAILY
tamsulosin 0.4 MG capsule
0.4 mg PO BID
polyethylene glycol 3350 [Miralax] 17 gram Powder In Packet
17 g PO QPM
losartan 100 mg Tablet
100 mg PO BID
rosuvastatin 20 mg Tablet
20 mg PO DAILY
dabigatran etexilate [Pradaxa] 150 mg Capsule
150 mg PO BID
Actemra 162 MG/0.9 ML syringe
162 mg SQ Q3W
metoprolol succinate 50 mg tablet extended release 24 hr
50 mg PO BID
pantoprazole [Protonix] 40 mg tablet,delayed release (DR/EC)
40 mg PO BID Qty: 60 0RF
pantoprazole 40 mg tablet,delayed release (DR/EC)
40 mg PO BID 14 Days Qty: 28 0RF
sucralfate [Carafate] 100 mg/mL suspension
10 ml PO QID Qty: 1000 0RF
Referrals:
Caleb Morgan MD [Family Provider] -
Interventions
Interventions:
*Risk Screen - Suicide Last Done: 02/05/24 11:10
*General Assessment Last Done: 02/05/24 11:53
*Neglect/Abuse Screening Last Done: 02/05/24 11:10
ED- Fall Risk Assessment Last Done: 02/05/24 11:53
*ED COVID-19 Vaccine History Last Done: 02/05/24 11:10
ED- Cardiac Assessment Last Done: 02/05/24 11:53
Discharge Date and Time
Print Language: [place]
[2024-02-05 12:15] LABS: % Basophils 0.3 % (0-2); % Eosinophils 3.5 % (0-6); % Immature Granulocytes 0.5 % (0-0.5); % Monocytes 9.5 % (1.7-9.3); % Neutrophils 58.2 % (42.2-75.2); Absolute Eosinophils 0.2 10^3/uL (0-0.7); Absolute Lymphocytes 1.8 10^3/uL (1.2-3.4); Absolute Monocytes 0.6 10^3/uL (0.1-0.6); Absolute Neutrophils 3.8 10^3/uL (1.4-6.5); Hematocrit 43.4 % (39.0-52.0); Hemoglobin 14.9 g/dL (13.0-18.0); Mean Corp Hgb Conc. 34.3 g/dL (33.0-37.0); Mean Corpuscular Hgb 29.2 pg (27.0-31.0); Mean Corpuscular Volume 85.1 fL (80.0-94.0); Mean Platelet Volume 10.4 fL (7.4-10.4); Nucleated Red Blood Cells % 0 % (-); Platelet Count 148 10^3/uL (130-400); Red Cell Dist. Width 13.7 % (11.5-14.5); White Blood Cell Count 6.5 10^3/uL (4.8-10.8)
[2024-02-05 12:42] LABS: ALT (SGPT) 19 U/L (0-50); AST (SGOT) 22 U/L (17-59); Albumin 4.1 g/dl (3.5-5.0); Alkaline Phosphatase 47 U/L (38-126); Blood Urea Nitrogen 14 mg/dl (9-20); Calcium 9.4 mg/dl (8.4-10.2); Carbon Dioxide 24 mmol/L (22-30); Chloride 105 mmol/L (98-107); Estimated Creatinine Clearance 96 ml/min; Glucose 115 mg/dl (70-99); Potassium 4.1 mmol/L (3.5-5.1); Sodium 139 mmol/L (135-145); Total Bilirubin 0.7 mg/dl (0.2-1.3); Total Protein 6.5 g/dl (6.3-8.2); eGFR > 60.00
[2024-02-05 12:45] LABS: Troponin I < 0.012 ng/ml
[2024-02-05 13:58] LABS: NT-proBNP 295 pg/ml
--- NOTE | 2024-02-05 14:22 | HPS.HSE ---
Family Physician
-
Family Physician: aCleb Morgan
Chief Complaint
-
Chest Pressure and Shortness of Breath
History of Present Illness
Patient is a 73 y/o male past medical history of a-fib, hypertension, hyperlipidemia, and prediabetes who presents with persistent chest pressure and shortness of breath. This is patient's third ED visit this month for chest pressure and shortness
of breath. Since his prior visits he has seen his mixing machine tender cork rod who had him wear a heart monitor which revealed frequent PVCs and some episodes of atrial tachycardia, and he had a lexiscan stress test on January 23 which was negative ischemia.
However patient reports worsening symptoms particularly increasing dyspnea on exertion and worsening chest pressure with activity. He denies sharp chest pains, or increased lower extremity edema.
Medical History
Past Medical History
Past Medical History: Reports Other
Additional Past Medical History:
Paroxysmal Atrial Fibrillation
Essential Hypertension
Hyperlipidemia
Prediabetes
Giant Cell Arteritis
COPD
BPH
GERD
Past Surgical History: Reports Other
Additional Past Surgical History:
Temporal Artery Biopsy
Lower Back Surgery
Social History
Tobacco: Smoker (2 packs a day for about 30 years, but cut down to about 5 cigarettes a day, and notes his last cigarette was 5 day ago )
Family History
Family History: Hypertension
Allergies / Home Medications
Allergies reflects when Allergies were last updated in [facility].
Home Medications with original date entered in [facility]
Allergy/Medication List:
Allergies
Allergy/AdvReac Type Severity Reaction Status Date / Time
No Known Allergies Allergy Verified 02/05/24 11:16
Home Medications
tamsulosin 0.4 mg capsule 0.4 mg PO BID Urinary issue 02/17/21
dabigatran etexilate 150 mg capsule (Pradaxa) 150 mg PO BID Blood Clot Prevention/Tx 01/23/23
acetaminophen 325 mg tablet (Tylenol) 650 mg PO Q6HPRN PRN headaches 02/05/24
diltiazem HCl 240 mg capsule,24 hr,extended release 240 mg PO DAILY 02/05/24
ezetimibe 10 mg tablet (Zetia) 10 mg PO QPM 02/05/24
finasteride 5 mg tablet 5 mg PO DAILY 02/05/24
pantoprazole 40 mg tablet,delayed release (Protonix) 40 mg PO DAILY 02/05/24
rosuvastatin 10 mg tablet (Crestor) 10 mg PO QPM 02/05/24
Review of Systems
-
A 12 point ROS was completed and negative except as noted: Yes
Constitutional: Denies Fever or Chills
Respiratory: Reports Trouble Breathing; Denies Cough
Cardiac: Reports Chest Pain and Palpitations
Physical Exam
Vital Signs
Vital Signs
Temp Pulse Resp BP Pulse Ox
98.5 F 91 27 130/57 99
02/05/24 11:10 02/05/24 14:06 02/05/24 14:06 02/05/24 14:06 02/05/24 14:06
Physical Exam
General: Well Developed and Well Nourished
HEENT: Anicteric and Moist mucous membranes
Respiratory: Clear and Non Labored Respirations
Cardiac: S1/S2 and Irregular Rhythm (Frequent PVCs noted on monitor); No Tachycardia
GI: Soft and Non Tender
Rectal: Deferred by Provider
Musculoskeletal: No Clubbing, No Cyanosis and No Edema
Skin: Warm and Dry
Neuro: Awake, Alert, Oriented and Nonfocal/grossly intact
Psych: Calm
Laboratory Results
-
02/05/24 11:59
02/05/24 11:59
Laboratory Results
Total Bilirubin 0.7 mg/dl (0.2-1.3) 02/05/24 11:59
AST 22 U/L (17-59) 02/05/24 11:59
ALT 19 U/L (0-50) 02/05/24 11:59
Alkaline Phosphatase 47 U/L (38-126) 02/05/24 11:59
Troponin I Cancelled 02/05/24 15:45
Data Reviewed
-
Lab Data: Labs Reviewed by me
Impression/Plan
-
Chest Pain, possible Stable vs Unstable Angina
-Consult Cardiology
-Give aspirin 324mg Now then start aspirin 81mg Daily
-Give dose of sublingual Nitro
-Continue to trend troponin
-Check Echo
Paroxysmal Atrial Fibrillation
-Continue Pradaxa for anticoagulation
-Continue diltiazem
Hyperlipidemia
-Continue Crestor and Zetia
Prediabetes
-HgbA1c 5.7 in October 2023
-Continue diabetic diet
GERD
-Continue Protonix
BPH
-Continue Flomax
Tobacco Use Disorder
-Encourage smoking cessation
DVT proph: Pradaxa
Code Status: Full Code
[2024-02-05] MEDS: LOW STRENGTH ASPIRIN 324 MG PO (14:38)
[2024-02-05] MEDS: NITROSTAT (SUBLINGUAL) 0.4 MG SL (14:39)
--- NOTE | 2024-02-05 14:48 | W.PN.UPDATE ---
Update Note
Progress Note Update
This is an addendum to the H&P written by Zuly Lan on 02/05/2024.� Patient seen and examined independently with PA.
73-year-old male past medical history of giant arteritis, paroxysmal atrial fibrillation on pradaxa, PVCs, hypertension, hyperlipidemia, obstructive sleep apnea on CPAP, BPH, nephrolithiasis, presenting with 2 weeks of chest pressure with shortness
of breath at rest but worse with exertion with palpitations.� Recently had cardiac stress test by cardiology which showed moderate, mild fixed inferior perfusion defect without significant ischemia.
EKG shows sinus rhythm with frequent PVCs pattern of bigeminy.� Troponin negative.
Concern for stable/unstable angina.� Aspirin given, continue Pradaxa,�as needed nitroglycerin although patient with headache second to nitroglycerin.� Trend troponins, cardiology consulted.
--- NOTE | 2024-02-05 14:57 | CON.CAR ---
Addendum entered and electronically signed by Gatito Chow DO 02/05/24 20:20:
I saw and examined the patient.
The Schedule Planning Manager's note was reviewed and I agree with the note.
Comment:
Plan:
Recurrent chest pain and dyspnea on exertion.
This is is third ER visit this month. He had recent stress that did not show ischemia. With recurrent symptoms, we discussed options and he is agreeable to consideration for left heart cath to eval coronary anatomy. Cont to hold Pradaxa.
Check echo
Monitor on tele.
Trend troponins
Check lipids
Further recommendations are to follow.
HPI: Patient came to the ER today with chest pain that started last night and has been persistent, cardiology is now consulted. Patient was seen in ER for palpitations on 01/18/2024 and then followed up with Dr. Palomo in the office on 01/19/2024.
At that time the patient appeared to be having symptomatic PVCs and he was started on Toprol XL 50 mg twice daily plus a PRN of Lopressor 25 mg twice daily palpitations. Dr. Palomo also noted at that time that the patient history of coronary artery
calcification but no recent stress test on study and so patient was sent for a Lexiscan nuclear stress test to exclude obstructive CAD. Despite increased medications and plan for stress testing the patient return to ER on 01/22/2024 with
complaints of bradycardia and dizziness. Patient was checking his heart rate using a pulse ox at home and it was felt that this was creating a falsely low heart rate on pulse ox check. Following serially undetectable troponin levels the patient
was discharged to home and then completed his outpatient stress test as scheduled on 01/24/2024. Lexiscan nuclear stress test revealed a moderate, mild, fixed inferior perfusion defect which improves with prone imaging suggesting attenuation, no
significant ischemia. Stress test was considered moderate risk due to Lexiscan used as testing agent. Patient reports that he has had chest pain daily for the last 3 weeks. Chest pain is now happening at lower levels of activity. Three weeks ago he
could walk 50 ft without chest pain and now he can only walk 5-10 feet before he starts with chest pain. No syncope. He has DELONG as well. He is a longtime smoker with LAI, but reports wearing his CPAP nightly without fail. This episode of chest pain
started last night and was constant until he asked his friend to drive him to the hospital this morning. Chest pain is worse with activity and improves with rest. He can feel palpitations.
�
Original Note:
Consultation
Consultation Request
Date/Time Consultation Requested: 02/05/24
Date/Time Consultation Performed: 02/05/24
Requesting Provider: Dr. Rodriguez in the ER
Performing Provider: Dr. Chow
Reason for Consultation: Chest pain
Medical History
-
History of Present Illness:
Patient came to the ER today with chest pain that started last night and has been persistent, cardiology is now consulted. Patient was seen in ER for palpitations on 01/18/2024 and then followed up with Dr. Palomo in the office on 01/19/2024. At
that time the patient appeared to be having symptomatic PVCs and he was started on Toprol XL 50 mg twice daily plus a PRN of Lopressor 25 mg twice daily palpitations. Dr. Palomo also noted at that time that the patient history of coronary artery
calcification but no recent stress test on study and so patient was sent for a Lexiscan nuclear stress test to exclude obstructive CAD. Despite increased medications and plan for stress testing the patient return to ER on 01/22/2024 with
complaints of bradycardia and dizziness. Patient was checking his heart rate using a pulse ox at home and it was felt that this was creating a falsely low heart rate on pulse ox check. Following serially undetectable troponin levels the patient
was discharged to home and then completed his outpatient stress test as scheduled on 01/24/2024. Lexiscan nuclear stress test revealed a moderate, mild, fixed inferior perfusion defect which improves with prone imaging suggesting attenuation, no
significant ischemia. Stress test was considered moderate risk due to Lexiscan used as testing agent. Patient reports that he has had chest pain daily for the last 3 weeks. Chest pain is now happening at lower levels of activity. Three weeks ago he
could walk 50 ft without chest pain and now he can only walk 5-10 feet before he starts with chest pain. No syncope. He has DELONG as well. He is a longtime smoker with LAI, but reports wearing his CPAP nightly without fail. This episode of chest pain
started last night and was constant until he asked his friend to drive him to the hospital this morning. Chest pain is worse with activity and improves with rest. He can feel palpitations.
PMH:
Coronary calcification
Paroxysmal atrial fibrillation
Chronic Xarelto OAC
last dose 02/05/24 AM
DM 2
Smoker
Hypertension
Obstructive sleep apnea
Giant cell arteritis on Actemra
Hypercholesterolemia
Obesity
Past Medical History
Past Medical History: Other (I)
Past Surgical History: Orthopedic (Back surgery/laminectomy) and Other (Temporal artery biopsy)
Social History
Tobacco: Smoker (Smokes less than a half a pack a day)
Alcohol: None
Drug: None
Personal:
Living: With Family
Family History
Family History: Hypertension
Allergies / Home Medications
Allergy/AdvReac Type Severity Reaction Status Date / Time
No Known Allergies Allergy Verified 02/05/24 11:16
�Medication �Instructions �Recorded �Confirmed �Type
tamsulosin 0.4 mg capsule 0.4 mg PO BID Urinary issue 02/17/21 02/05/24 History
dabigatran etexilate 150 mg 150 mg PO BID Blood Clot 01/23/23 02/05/24 History
capsule (Pradaxa) Prevention/Tx
acetaminophen 325 mg tablet 650 mg PO Q6HPRN PRN headaches 02/05/24 02/05/24 History
(Tylenol)
diltiazem HCl 240 mg capsule,24 240 mg PO DAILY 02/05/24 02/05/24 History
hr,extended release
ezetimibe 10 mg tablet (Zetia) 10 mg PO QPM 02/05/24 02/05/24 History
finasteride 5 mg tablet 5 mg PO DAILY 02/05/24 02/05/24 History
pantoprazole 40 mg tablet,delayed 40 mg PO DAILY 02/05/24 02/05/24 History
release (Protonix)
rosuvastatin 10 mg tablet (Crestor) 10 mg PO QPM 02/05/24 02/05/24 History
Review of Systems
-
History Source: Patient and Family (family friend bedside helping with translation)
All other systems: Negative unless noted
Physical Exam
Vital Signs
Temp Pulse Resp BP Pulse Ox
98.5 F 91 27 130/57 99
02/05/24 11:10 02/05/24 14:06 02/05/24 14:06 02/05/24 14:39 02/05/24 14:06
GEN: NAD. AAOx3
HEENT: EOMI, MMM
LUNGS: CTA B/L, no wheezes or rales
CV: Reg, S1/S2, no murmur
ABD: soft, BS+, NT, ND
EXT: No clubbing, cyanosis, lesions or edema B/L
NEURO: Gross non-focal
SKIN: Warm, dry and pink. No rash
Lab Results
02/05/24 11:59
02/05/24 11:59
Troponin I Cancelled 02/05/24 15:45
[id number] Pept Cancelled 02/05/24 12:45
Impression / Plan
-
PCP:Caleb Morgan
Telephone Collector: Dr. YANIRA Palomo
Impression:
Chest pain, [place]
Coronary calcification
Paroxysmal atrial fibrillation
Chronic Xarelto OAC
last dose 02/05/24 AM
DM 2
Smoker
Hypertension
Obstructive sleep apnea
Giant cell arteritis on Actemra
Hypercholesterolemia
Obesity
Echo 07/04/22: EF 60 to 65%, normal regional wall motion, trace MR, small pericardial effusion without hemodynamic compromise
Plan:
-Patient came to the ER today with chest pain that started last night and has been persistent, cardiology is now consulted. Patient was seen in ER for palpitations on 01/18/2024 and then followed up with Dr. Palomo in the office on 01/19/2024. At
that time the patient appeared to be having symptomatic PVCs and he was started on Toprol XL 50 mg twice daily plus a PRN of Lopressor 25 mg twice daily palpitations. Dr. Palomo also noted at that time that the patient history of coronary artery
calcification but no recent stress test on study and so patient was sent for a Lexiscan nuclear stress test to exclude obstructive CAD. Despite increased medications and plan for stress testing the patient return to ER on 01/22/2024 with
complaints of bradycardia and dizziness. Patient was checking his heart rate using a pulse ox at home and it was felt that this was creating a falsely low heart rate on pulse ox check. Following serially undetectable troponin levels the patient
was discharged to home and then completed his outpatient stress test as scheduled on 01/24/2024. Lexiscan nuclear stress test revealed a moderate, mild, fixed inferior perfusion defect which improves with prone imaging suggesting attenuation, no
significant ischemia. Stress test was considered moderate risk due to Lexiscan used as testing agent. Patient reports that he has had chest pain daily for the last 3 weeks. Chest pain is now happening at lower levels of activity. Three weeks ago he
could walk 50 ft without chest pain and now he can only walk 5-10 feet before he starts with chest pain. No syncope. He has DELONG as well. He is a longtime smoker with LAI, but reports wearing his CPAP nightly without fail. This episode of chest pain
started last night and was constant until he asked his friend to drive him to the hospital this morning. Chest pain is worse with activity and improves with rest. He can feel palpitations.
-Troponin serially undetectable.
-No acute ischemic changes on ECG reviewed by me.
-Given ongoing chest pain and recent stress test without ischemia would recommend cardiac cath. Patient reports cardiac cath 30 years ago. Explained procedure and likely radial access, he previously had groin access.
-Last dose of Pradaxa 150 mg BID was this morning. Will hold in anticipation of cath tomorrow vs Monday. Cre is normal. No need to bridge.
-Check CVE
-Check echo
[2024-02-05] MEDS: TYLENOL 650 MG PO (15:39)
[2024-02-05 16:27] LABS: Troponin I < 0.012 ng/ml
[2024-02-05] MEDS: ZETIA 10 MG PO (18:06)
[2024-02-05] MEDS: CRESTOR 10 MG PO (18:06)
[2024-02-05] MEDS: FLOMAX 0.4 MG PO (19:48)
[2024-02-06 03:45] VITALS: BP 141/77
[2024-02-06 06:00] VITALS: BMI 32.2
[2024-02-06 07:05] VITALS: BP 140/66
[2024-02-06 08:05] LABS: Hematocrit 44.1 % (39.0-52.0); Mean Corpuscular Hgb 29.1 pg (27.0-31.0); Mean Corpuscular Volume 85.6 fL (80.0-94.0); Platelet Count 137 10^3/uL (130-400); Red Blood Cell Count 5.15 10^6/uL (4.70-6.10); Red Cell Dist. Width 13.6 % (11.5-14.5); White Blood Cell Count 6.5 10^3/uL (4.8-10.8)
[2024-02-06 09:13] LABS: TSH Reflex To Free T4 0.89 uIU/ml (0.47-4.68)
[2024-02-06 09:25] LABS: Blood Urea Nitrogen 16 mg/dl (9-20); Calcium 9.3 mg/dl (8.4-10.2); Carbon Dioxide 27 mmol/L (22-30); Chloride 102 mmol/L (98-107); Estimated Creatinine Clearance 86 ml/min; Glucose 99 mg/dl (70-99); HDL Cholesterol 48 mg/dl; LDL Cholesterol, Calculated 54 mg/dl; Magnesium 1.9 mg/dl (1.6-2.3); Potassium 4.3 mmol/L (3.5-5.1); Sodium 141 mmol/L (135-145); Total Cholesterol 120 mg/dl (50-199); Triglyceride 91 mg/dl (10-149); Very Low Density Lipoprotein 18 mg/dl (0-30); eGFR > 60.00
[2024-02-06] MEDS: CARDIZEM CD 240 MG PO (09:56)
[2024-02-06] MEDS: FLOMAX 0.4 MG PO ×2 (09:56→20:28)
[2024-02-06] MEDS: PROSCAR 5 MG PO (09:57)
[2024-02-06] MEDS: PROTONIX 40 MG PO (09:57)
[2024-02-06] MEDS: LOW STRENGTH ASPIRIN 81 MG PO (09:59)
[2024-02-06] MEDS: FLUSH (NSS) 1 FLUSH IV (09:59)
--- NOTE | 2024-02-06 10:30 | W.PN.CARDCBS ---
Addendum entered and electronically signed by Mat More MD 02/06/24 11:39:
I saw and examined the patient.
The SEED EXPERT or PA's note was reviewed and I agree with the note.
Comment: General: Well developed, well nourished in NAD.
Neck: Supple, no JVD, HJR, carotids +2 B/L, no bruits bilaterally.
Heart: Non displaced PMI, RRR, no murmurs, No S3, S4, no rubs.
Lungs: Clear to auscultation bilaterally, no wheeze, rhonchi, rubs bilaterally,
normal expiratory phase.
Extremities: No clubbing, cyanosis or edema bilaterally.
Neuro: Grossly nonfocal, awake, alert and oriented x3.
For cardiac catheterization on 02/06. Needs to be off Pradaxa for 48 hours before catheterization. Replete magnesium
Original Note:
Today's Communication / Plan
-
Cardiac catheterization 02/07/2024
N.p.o. a.m. 02/07/2024
Continue to hold Pradaxa
To consider increasing diltiazem or adding low-dose beta-chey or antiarrhythmic drug to help suppress ectopy
Replete magnesium
Impression / Plan
-
PCP:Caleb Morgan
Crown Pouncer: Dr. YANIRA Palomo
Impression:
Presented 02/05/2024 from cardiology office with chest pain, [place]
Coronary calcification
Paroxysmal atrial fibrillation
Chronic Xarelto OAC
last dose 02/05/24 AM
DM 2
Smoker
Hypertension
Obstructive sleep apnea
Giant cell arteritis on Actemra
Hypercholesterolemia
Obesity
Echo 07/04/22: EF 60 to 65%, normal regional wall motion, trace MR, small pericardial effusion without hemodynamic compromise
Echo 02/06/2024: Pending
7-day outpatient monitor completed 01/26/2024: Predominantly sinus rhythm with 4 episodes of atrial tachycardia longest 24 beats, PACs 0.1%, PVCs 17% with frequent ventricular pairs but no sustained VT. Symptoms correlated with PVCs. Monitor was
performed on Toprol 50 mg twice a day.
Plan:
-Presented 02/05/2024 with chest pain with minimal activity but denies chest pain at rest
-Troponin serially undetectable.
-No acute ischemic changes on ECG on admission but patient with ventricular bigeminy. With frequent PVCs, runs of ventricular bigeminy, ventricular couplets on telemetry.
-Given escalating chest discomfort with minimal activity, reduced exercise tolerance, dyspnea on exertion would recommend cardiac cath despite having unremarkable stress test recently as patient may have balanced disease. Patient agreeable to
proceed.
-Patient maintained on Pradaxa 150 mg BID with last dose 02/05/2024 in AM. Will proceed with catheterization on 02/07/2024 to allow for 48-hour washout. No need for bridge as troponin serially negative.
-Very frequent PVCs on tele. Patient had been maintained on Toprol 50 mg twice a day as outpatient but had monitor noted above and was transition to diltiazem 240 mg once a day on 01/29/2024. Would consider adding low dose beta-chey Toprol 25 mg
to suppress ectopy or uptitrating diltiazem. Another option would be initially ADD and consider PVC ablation w/ EPS
-Continue aspirin, statin, diltiazem
-Renal function stable. K4.3, mag 1.9. Will replete
-TSH 0.89
-Lipids 02/05/2022 TC 120, HDL 48, LDL 54, triglycerides 91. Lipids at goal continue rosuvastatin
-Check echo, ordered
HPI 02/05/2024:
Patient came to the ER today with chest pain that started last night and has been persistent, cardiology is now consulted. Patient was seen in [facility] ER for palpitations on 01/18/2024 and then followed up with Dr. Palomo in the office on 01/19/2024. At
that time the patient appeared to be having symptomatic PVCs and he was started on Toprol XL 50 mg twice daily plus a PRN of Lopressor 25 mg twice daily palpitations. Dr. Palomo also noted at that time that the patient history of coronary artery
calcification but no recent stress test on study and so patient was sent for a Lexiscan nuclear stress test to exclude obstructive CAD. Despite increased medications and plan for stress testing the patient return to ER on 01/22/2024 with
complaints of bradycardia and dizziness. Patient was checking his heart rate using a pulse ox at home and it was felt that this was creating a falsely low heart rate on pulse ox check. Following serially undetectable troponin levels the patient
was discharged to home and then completed his outpatient stress test as scheduled on 01/24/2024. Lexiscan nuclear stress test revealed a moderate, mild, fixed inferior perfusion defect which improves with prone imaging suggesting attenuation, no
significant ischemia. Stress test was considered moderate risk due to Lexiscan used as testing agent. Patient reports that he has had chest pain daily for the last 3 weeks. Chest pain is now happening at lower levels of activity. Three weeks ago he
could walk 50 ft without chest pain and now he can only walk 5-10 feet before he starts with chest pain. No syncope. He has DELONG as well. He is a longtime smoker with LAI, but reports wearing his CPAP nightly without fail. This episode of chest pain
started last night and was constant until he asked his friend to drive him to the hospital this morning. Chest pain is worse with activity and improves with rest. He can feel palpitations.
Progress Note - Crown Pouncer
Subjective
Date of Service: February 06, 2024
Patient seen and examined. Patient laying in bed. Patient continues to note feeling of breathlessness associated with ventricular ectopy.
Objective
Labs:
02/06/24 07:37
02/06/24 07:37
Labs
Hgb 15.0 g/dL (13.0-18.0) 02/06/24 07:37
Hct 44.1 % (39.0-52.0) 02/06/24 07:37
Plt Count 137 10^3/uL (130-400) 02/06/24 07:37
Sodium 141 mmol/L (135-145) 02/06/24 07:37
Potassium 4.3 mmol/L (3.5-5.1) 02/06/24 07:37
BUN 16 mg/dl (9-20) 02/06/24 07:37
Creatinine 1.0 mg/dL (0.7-1.3) 02/06/24 07:37
Glucose 99 mg/dl (70-99) 02/06/24 07:37
Troponins
02/05/24 02/05/24 02/05/24
11:59 12:45 15:45
Troponin I < 0.012 Cancelled Cancelled
02/05/24
15:53
Troponin I < 0.012
Vital Signs and I&O:
Vital Signs
Temp Pulse Resp BP Pulse Ox
98.3 F 84 20 140/66 99
02/06/24 07:05 02/06/24 09:56 02/06/24 07:05 02/06/24 09:56 02/06/24 09:12
Vital Signs
Temp Pulse Resp BP Pulse Ox
98.3 F 84 20 140/66 99
02/06/24 07:05 02/06/24 09:56 02/06/24 07:05 02/06/24 09:56 02/06/24 09:12
Intake & Output
02/04/24 02/05/24 02/06/24 02/07/24
06:59 06:59 06:59 06:59
Intake Total 480 / 480
Output Total 450 / 450
Balance 30 / 30
Physical Exam
Physical Exam
GEN: No distress, awake, Ox3 lying in bed
HEENT: supple, anicteric, mmm
LUNGS: CTA, no wheezes/rales
CV: Distant heart tones with irregular with frequent ectopy, S1/S2, no murmur, rub
ABD: soft, BS+, NT/ND
EXT: No edema, clubbing or cyanosis
NEURO: Gross non-focal
SKIN: No rash, warm, dry
[2024-02-06 11:39] VITALS: BP 141/56
[2024-02-06 11:49] VITALS: BMI 32.2
[2024-02-06] MEDS: MAGNESIUM OXIDE 500 MG PO (12:10)
--- NOTE | 2024-02-06 13:33 | CM ---
Chart reviewed and CM spoke with pt who reports that he lives in a two story home with his and son. 3 entry steps and 8 steps to bed and bath. [employer] he was independent with ambulation and ADLs. Pt has no SNF or VN history. Cardiac Cath scheduled
for tomorrow, 02/07/2024.
Pt does not anticipate any needs at dc.
PCP: Caleb Morgan
Pharmacy: [facility] in [place]
Plan: w[place] home with no identified needs when medically ready.
[2024-02-06] MEDS: MIRALAX 17 GRAMS PO (14:20)
--- NOTE | 2024-02-06 14:44 | W.PN.HOSP.TC ---
Today's Communication/Plan
-
Cath on 02/06
Assessment / Plan
Assessment / Plan
Impression:
Persistent exertional chest pain with concern for unstable angina
Coronary calcification
Paroxysmal atrial fibrillation
Anticoagulation with Pradaxa.
Type 2 diabetes.
Essential hypertension
Obstructive sleep apnea
Smoker.
Giant cell arteritis on Actemra.
Dyslipidemia
Obesity with BMI of 32.
BPH
GERD
Plan:
Persistent chest pain, accelerated with minimal exertion
Recent Lexiscan stress test with no evidence of ischemia.
ECG with no ischemia.
Echocardiogram 02/05 with preserved left ventricular function without regional wall motion abnormalities.
With concern for unstable angina plan is for catheterization on 02/06 after Pradaxa wear off. Last dose 02/03 1 AM)
Continue aspirin
Continue cardiac monitoring
Paroxysmal atrial fibrillation.
ECG on presentation with sinus rhythm.
Continue diltiazem
Resume Pradaxa post cath
Hyperlipidemia
-Continue Crestor and Zetia
Prediabetes
-HgbA1c 5.7 in October 2023
-Continue diabetic diet
GERD
-Continue Protonix
BPH
-Continue Flomax
Tobacco Use Disorder
-Encourage smoking cessation
Constipation
Start MiraLAX
DVT proph: Pradaxa
Code Status: Full Code
Anticipated Discharge: 24 - 48 hours
Subjective/Interval History
-
Date of Service: February 06, 2024
Objective Data
-
Labs:
Laboratory Results
02/06/24
07:37
WBC 6.5
Hgb 15.0
Hct 44.1
Plt Count 137
Sodium 141
Potassium 4.3
Chloride 102
Carbon Dioxide 27
BUN 16
Creatinine 1.0
Glucose 99
Calcium 9.3
Vital Signs:
Vital Signs
Temp Pulse Resp BP Pulse Ox
98.1 F 52 20 141/56 95
02/06/24 11:39 02/06/24 11:39 02/06/24 11:39 02/06/24 11:39 02/06/24 11:39
I&O
02/05/24 02/06/24 02/07/24
06:59 06:59 06:59
Intake Total 480 / 480
Output Total 450 / 450
Balance 30 / 30
Physical Exam
-
General: Well Developed and No Apparent Distress
HEENT: Normocephalic, Atraumatic and Moist Mucous Membranes
Respiratory: Clear to Auscultation
Cardiac: Regular Rhythm and S1/S2; Negative Murmur, Rub or Gallop
GI: Soft, Nontender, Nondistended and Normal Bowel Sounds; Negative Organomegaly
Rectal: Deferred by Provider
Musculoskeletal: No Clubbing, No Cyanosis and No Edema
Skin: Negative Rash
Neuro: Nonfocal/Grossly Intact
[2024-02-06 15:18] VITALS: BP 129/68
--- NOTE | 2024-02-06 16:09 | PTCARENOTE ---
Pt AAO x3, [place]; OOB in room, jennifer well, noc/o weakness/dizziness. VSS. Telemetry:SR with freq PVC's/couplets/bigeminy/trigeminy. On room air- pulse ox 98%, pt occ c/o slight SOB with activity. Abd obese, soft, jennifer PO. Voids in urinal/BR without
difficulty. Resting in bed at present, no c/o. Pt aware of NPO past midnight for cardiac cath 02/06. Will continue to monitor.
[2024-02-06] MEDS: ZETIA 10 MG PO (17:51)
[2024-02-06] MEDS: TYLENOL 650 MG PO (17:51)
[2024-02-06] MEDS: CRESTOR 10 MG PO (17:51)
[2024-02-06 19:00] VITALS: BP 126/71
[2024-02-06] MEDS: MELATONIN 5 MG PO (21:55)
[2024-02-06 23:00] VITALS: BP 122/74
[2024-02-07] VITALS (13 sets, daily range): BP systolic 108–135; BP diastolic 55–80; BMI 32.1
[2024-02-07] MEDS: CARDIZEM CD 240 MG PO (09:29)
[2024-02-07] MEDS: FLOMAX 0.4 MG PO ×2 (09:30→20:27)
[2024-02-07] MEDS: PROSCAR 5 MG PO (09:30)
[2024-02-07] MEDS: LOW STRENGTH ASPIRIN 81 MG PO (09:30)
[2024-02-07] MEDS: PROTONIX 40 MG PO (09:30)
[2024-02-07] MEDS: TYLENOL 650 MG PO ×2 (11:03→20:27)
--- NOTE | 2024-02-07 12:54 | ITS.CL.CATH ---
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
Cardiac Catheterization
Procedure Report:
LEFT HEART CATHETERIZATION
Date of Procedure: February 07, 2024
Referring: Fidelia Chang.
PROCEDURES:
1. Left heart catheterization, coronary angiogram.
2. Ultrasound-guided access.
3. Intravascular ultrasound (IVUS) of ostial left main.
INDICATION: Patient is a 73-year-old gentleman with past medical history of hypertension, hyperlipidemia, giant cell arteritis, obstructive sleep apnea, morbid obesity, active tobacco abuse, paroxysmal atrial fibrillation on chronic Pradaxa who
presents with vague symptoms of palpitations and chest pressure with recent stress test that was negative with progressive symptoms concerning for possible unstable angina now being referred for left heart catheterization to rule out obstructive CAD.
ACCESS: Right radial artery, 6 [place] sheath, under ultrasound guidance
HEMODYNAMICS : (mmHg)
AO (s/d) : 132/71
LV (s/d) : 126/14
LVEDP : 21
CORONARY FINDINGS
DOMINANCE: Right
LEFT MAIN: The left main artery is a large-caliber vessel which gives rise to the left into descending artery and the left circumflex artery. There is a eccentric calcified 30% ostial stenosis with an MLA more than 6 mm� by IVUS imaging
LEFT ANTERIOR DESCENDING: The left anterior descending artery is a large-caliber vessel which gives rise to 1 major diagonal branch as it courses to the anterior interventricular groove and wraps around the apex.
CIRCUMFLEX: The left circumflex artery is a medium caliber vessel which gives rise to 2 major obtuse marginal branches. There is minimal luminal irregularities.
RIGHT CORONARY ARTERY: The right coronary artery is a moderately tortuous vessel which gives rise to the right posterior descending artery and a small right posterolateral system. There is eccentric 20 to 30% ostial RCA stenosis without pressure
dampening or ventricularization upon engagement selectively with a 6 [place] JR4 diagnostic catheter.
IVUS ASSESSMENT OF OSTIAL LEFT MAIN: Given eccentric plaque with ventricularization upon engagement with a 6 [place] JL 4 diagnostic catheter we decided to proceed with IVUS assessment of ostial left main. Additional heparin was given to maintain a
therapeutic ACT throughout the case. The left coronary artery was selectively engaged using a 6 [place] JL 4 guide catheter. We used a 190 cm 0.014' BMW coronary wire which was successfully advanced into the LAD. Over the wire we introduced a
[place] IVUS [place] eye catheter and made multiple passes with measurements at the smallest area showing an MLA more than 6 mm�. Eccentric calcified plaque was noted at the ostium.
SEDATION: 56 minutes of procedural sedation was utilized. An independent medical assistant per diem was present to assist with and help manage the patient's level of consciousness and physiologic status.
RADIATION SUMMARY: Fluoro Time (min): 7.1, Dose (mGy): 822.77, DAP (Gy.cm2) : 53.79
Closure Device: Vascular band over right radial artery, 12 cc of air.
CONCLUSIONS
1. Nonobstructive coronary artery disease.
2. 30% eccentric, calcified ostial left main stenosis which was assessed by IVUS imaging showing MLA more than 6 mm�.
3. Elevated LVEDP at 21 mmHg.
RECOMMENDATIONS
1. Wean radial band per protocol.
2. 20 mg of IV Lasix was given at the end of the case with plan to start daily 20 mg of p.o. Lasix starting tomorrow with close monitoring of electrolytes and renal function.
3. Given frequent ventricular ectopy, we will add low-dose beta-chey in addition to the calcium channel chey to reduce ectopy.
4. Aggressive management of cardiovascular risk factors.
5. Strongly encourage complete smoking cessation.
Tessa Call MD, FACC, [facility] [place]
[2024-02-07] MEDS: NSS 1000 IV (14:30)
--- NOTE | 2024-02-07 14:42 | PTCARENOTE ---
Returned to floor post cath Right R band CDI. + sensation. No complaints.
[2024-02-07] MEDS: TOPROL XL 25 MG PO (14:49)
--- NOTE | 2024-02-07 16:36 | W.PN.HOSP.TC ---
Today's Communication/Plan
-
Cardiac cath.
Optimization of nonobstructive CAD medical therapy.
Monitor response to Lasix.
Resume Pradaxa.
Add low-dose of beta-chey in addition to Cardizem.
Increase activity
Assessment / Plan
Assessment / Plan
Impression:
Persistent exertional chest pain with concern for unstable angina
Coronary calcification
Paroxysmal atrial fibrillation
Anticoagulation with Pradaxa.
Type 2 diabetes.
Essential hypertension
Obstructive sleep apnea
Smoker.
Giant cell arteritis on Actemra.
Dyslipidemia
Obesity with BMI of 32.
BPH
GERD
Plan:
Persistent chest pain, accelerated with minimal exertion
Recent Lexiscan stress test with no evidence of ischemia.
ECG with no ischemia.
Echocardiogram 02/05 with preserved left ventricular function without regional wall motion abnormalities.
Cardiac cath on 02/06 with nonobstructive CAD. Noted with LVEDP 21
Optimize medical therapy
And beta-chey
Provide Lasix 20 mg IV given above cath
Continue aspirin
Paroxysmal atrial fibrillation.
ECG on presentation with sinus rhythm.
Continue diltiazem
Resume Pradaxa post cath
Hyperlipidemia
-Continue Crestor and Zetia
Prediabetes
-HgbA1c 5.7 in October 2023
-Continue diabetic diet
GERD
-Continue Protonix
BPH
-Continue Flomax
Tobacco Use Disorder
-Encourage smoking cessation
Constipation
Start MiraLAX
DVT proph: Pradaxa
Code Status: Full Code
Anticipated Discharge: Within 24 hours
Subjective/Interval History
-
Date of Service: February 07, 2024
Objective Data
-
Vital Signs:
Vital Signs
Temp Pulse Resp BP Pulse Ox
98 F 70 18 118/55 96
02/07/24 16:15 02/07/24 16:15 02/07/24 16:15 02/07/24 16:15 02/07/24 16:15
I&O
02/06/24 02/07/24 02/08/24
06:59 06:59 06:59
Intake Total 480 / 480 860 / 860
Output Total 450 / 450
Balance 860 / 860
Physical Exam
-
General: Well Developed and No Apparent Distress
HEENT: Normocephalic, Atraumatic and Moist Mucous Membranes
Respiratory: Clear to Auscultation
Cardiac: Regular Rhythm and S1/S2; Negative Murmur, Rub or Gallop
GI: Soft, Nontender, Nondistended and Normal Bowel Sounds; Negative Organomegaly
Rectal: Deferred by Provider
Musculoskeletal: No Clubbing, No Cyanosis and No Edema
Skin: Negative Rash
Neuro: Nonfocal/Grossly Intact
[2024-02-07] MEDS: MIRALAX 17 GRAMS PO (16:48)
[2024-02-07] MEDS: ZETIA 10 MG PO (16:49)
[2024-02-07] MEDS: CRESTOR 10 MG PO (16:49)
[2024-02-07] MEDS: COLACE 100 MG PO (20:32)
[2024-02-08 03:06] VITALS: BP 118/65
[2024-02-08 06:00] VITALS: BMI 32.0
[2024-02-08 07:30] VITALS: BP 144/66
[2024-02-08 08:10] LABS: Hematocrit 44.1 % (39.0-52.0); Hemoglobin 15.1 g/dL (13.0-18.0); Mean Corp Hgb Conc. 34.2 g/dL (33.0-37.0); Mean Corpuscular Hgb 29.8 pg (27.0-31.0); Mean Corpuscular Volume 87.2 fL (80.0-94.0); Mean Platelet Volume 10.6 fL (7.4-10.4); Platelet Count 138 10^3/uL (130-400); Red Blood Cell Count 5.06 10^6/uL (4.70-6.10); Red Cell Dist. Width 13.6 % (11.5-14.5); White Blood Cell Count 5.5 10^3/uL (4.8-10.8)
[2024-02-08 08:14] LABS: Blood Urea Nitrogen 19 mg/dl (9-20); Calcium 9.1 mg/dl (8.4-10.2); Carbon Dioxide 28 mmol/L (22-30); Chloride 100 mmol/L (98-107); Estimated Creatinine Clearance 86 ml/min; Glucose 97 mg/dl (70-99); Magnesium 2.1 mg/dl (1.6-2.3); Potassium 4.3 mmol/L (3.5-5.1); Sodium 140 mmol/L (135-145); eGFR > 60.00
[2024-02-08] MEDS: LASIX 20 MG PO (09:00)
[2024-02-08] MEDS: CARDIZEM CD 240 MG PO (09:00)
[2024-02-08] MEDS: FLOMAX 0.4 MG PO ×2 (09:00→20:21)
[2024-02-08] MEDS: PROTONIX 40 MG PO (09:01)
[2024-02-08] MEDS: PROSCAR 5 MG PO (09:01)
[2024-02-08] MEDS: TOPROL XL 25 MG PO ×2 (09:02→12:48)
[2024-02-08] MEDS: MIRALAX 17 GRAMS PO (09:02)
[2024-02-08] MEDS: LOW STRENGTH ASPIRIN 81 MG PO (09:02)
[2024-02-08] MEDS: FLUSH (NSS) 1 FLUSH IV (09:02)
--- NOTE | 2024-02-08 09:25 | W.PN.CARDCBS ---
Addendum entered and electronically signed by Ena Howell PA-C 02/08/24 14:29:
Patient with increasing burden of symptomatic PVCs while attempting to ambulate. Increase Toprol XL from 25 mg daily to 50 mg daily including an extra dose of Toprol XL 25 mg now. We will discontinue plans to start losartan in favor of AV sarthak
blockers for PVC suppression.
Addendum entered and electronically signed by Gatito Chow DO 02/08/24 12:21:
I saw and examined the patient.
The [employer]astics [employer] Worker's note was reviewed and I agree with the note.
Comment:
Plan:
Reviewed his cath
New to lasix and will cont as outpt
BMP as outpt
Given symptomatic PVCs, increase Toprol to 50 mg BID and hold losartan to give room for bp.
If continues to improve possible d/c later today.
Outpt follow up to be arranged.
Original Note:
Today's Communication / Plan
-
New to Lasix, Toprol XL and losartan
D/C to home today
Impression / Plan
-
PCP:Caleb Morgan
[employer]: Dr. YANIRA Palomo
Impression:
Chest pain, [place]
Coronary calcification
Nonobstructive CAD by cath 02/07/24
Paroxysmal atrial fibrillation
Chronic Xarelto OAC
last dose 02/05/24 AM
DM 2
Smoker
Hypertension
Obstructive sleep apnea
Giant cell arteritis on Actemra
Hypercholesterolemia
Obesity
Acute HFpEF
Symptomatic PVCs
7-day outpatient monitor completed 01/26/24: Predominantly sinus rhythm with 4 episodes of atrial tachycardia longest 24 beats, PACs 0.1%, PVCs 17% with frequent ventricular pairs but no sustained VT. Symptoms correlated with PVCs. Monitor was
performed on Toprol 50 mg twice a day.
Echo 07/04/22: EF 60 to 65%, normal regional wall motion, trace MR, small pericardial effusion without hemodynamic compromise
Echo 02/06/2024: EF 56%, diastolic function indeterminant, normal regional wall motion, trace MR, small pericardial effusion without evidence of hemodynamic compromise
Plan:
-Patient had serially undetectable Troponin levels and then nonobstructive CAD by cath.
-LVEDP 21 and patient given Lasix 20 mg IV x1 on 02/07/24 and then ordered Lasix 20 mg PO daily starting 02/08/24. Cre and BP stable.
-EF preserved by echo this admission
-Outpatient dose of Cardizem CD 240 mg daily continued and Toprol XL 25 mg daily added
-Will add losartan 25 mg daily 02/08/24
-Will check cost of Farxiga 10 mg daily
-Outpatient dose of PRadaxa 150 mg BID restarted 02/08/24 AM
-Patient with symptomatic PVCs. Outpatient dose of Cardizem CD 240 mg daily continued and Toprol XL 25 mg daily added this admission
-D/C to home 02/08/24
HPI 02/05/2024:
Patient came to the ER today with chest pain that started last night and has been persistent, cardiology is now consulted. Patient was seen in ER for palpitations on 01/18/2024 and then followed up with Dr. Palomo in the office on 01/19/2024. At
that time the patient appeared to be having symptomatic PVCs and he was started on Toprol XL 50 mg twice daily plus a PRN of Lopressor 25 mg twice daily palpitations. Dr. Palomo also noted at that time that the patient history of coronary artery
calcification but no recent stress test on study and so patient was sent for a Lexiscan nuclear stress test to exclude obstructive CAD. Despite increased medications and plan for stress testing the patient return to ER on 01/22/2024 with
complaints of bradycardia and dizziness. Patient was checking his heart rate using a pulse ox at home and it was felt that this was creating a falsely low heart rate on pulse ox check. Following serially undetectable troponin levels the patient
was discharged to home and then completed his outpatient stress test as scheduled on 01/24/2024. Lexiscan nuclear stress test revealed a moderate, mild, fixed inferior perfusion defect which improves with prone imaging suggesting attenuation, no
significant ischemia. Stress test was considered moderate risk due to Lexiscan used as testing agent. Patient reports that he has had chest pain daily for the last 3 weeks. Chest pain is now happening at lower levels of activity. Three weeks ago he
could walk 50 ft without chest pain and now he can only walk 5-10 feet before he starts with chest pain. No syncope. He has DELONG as well. He is a longtime smoker with LAI, but reports wearing his CPAP nightly without fail. This episode of chest pain
started last night and was constant until he asked his friend to drive him to the hospital this morning. Chest pain is worse with activity and improves with rest. He can feel palpitations.
Progress Note - [employer]
Subjective
Date of Service: February 08, 2024
Less SOB than admission
Objective
Labs:
02/08/24 07:23
02/08/24 07:23
Labs
Hgb 15.1 g/dL (13.0-18.0) 02/08/24 07:23
Hct 44.1 % (39.0-52.0) 02/08/24 07:23
Plt Count 138 10^3/uL (130-400) 02/08/24 07:23
Sodium 140 mmol/L (135-145) 02/08/24 07:23
Potassium 4.3 mmol/L (3.5-5.1) 02/08/24 07:23
BUN 19 mg/dl (9-20) 02/08/24 07:23
Creatinine 1.0 mg/dL (0.7-1.3) 02/08/24 07:23
Glucose 97 mg/dl (70-99) 02/08/24 07:23
Troponins
02/05/24 02/05/24 02/05/24
11:59 12:45 15:45
Troponin I < 0.012 Cancelled Cancelled
02/05/24
15:53
Troponin I < 0.012
Vital Signs and I&O:
Vital Signs
Temp Pulse Resp BP Pulse Ox
98.5 F 66 18 144/66 94
02/08/24 07:30 02/08/24 09:02 02/08/24 07:30 02/08/24 09:02 02/08/24 09:10
Vital Signs
Temp Pulse Resp BP Pulse Ox
98.5 F 66 18 144/66 94
02/08/24 07:30 02/08/24 09:02 02/08/24 07:30 02/08/24 09:02 02/08/24 09:10
Intake & Output
02/06/24 02/07/24 02/08/24 02/09/24
06:59 06:59 06:59 06:59
Intake Total 480 / 480 860 / 860 720 / 720
Output Total 450 / 450 350 / 350
Balance 860 / 860 370 / 370
Physical Exam
Physical Exam
GEN: NAD. AAOx3
HEENT: EOMI, MMM
LUNGS: No audible wheeze
CV: SR on tele
ABD: ND
EXT: Right radial without hematoma or ecchymosis. No edema B/L
NEURO: Gross non-focal
SKIN: No rash
[2024-02-08 10:45] VITALS: BMI 32.0
[2024-02-08] MEDS: PRADAXA 150 MG PO ×2 (11:00→20:21)
[2024-02-08 11:09] VITALS: BP 122/65
--- NOTE | 2024-02-08 14:58 | VNURNOTE ---
Home Health Liaison met with patient at bedside to discuss [facility] nurse/therapy, visits, schedule and homebound status. Patient is agreeable and understands that visits at home will be 2-3 x per week to assess and teach medical management. he
confirms he has a scale at home and sees Dr YANIRA Palomo as outpt. [facility] brochure provided with contact information. Patient is aware that [facility] will contact them for start of care in 1-2 days after discharge from . [facility] referral completed in [facility].
[2024-02-08 15:22] VITALS: BP 128/61
--- NOTE | 2024-02-08 15:28 | W.PN.HOSP.TC ---
Today's Communication/Plan
-
Remains with symptomatic PVCs.
Titrate beta-chey dose.
Monitor with introduction of diuretics
Assessment / Plan
Assessment / Plan
Impression:
Persistent exertional chest pain with concern for unstable angina
Acute CHF preserved EF
Coronary calcification
Paroxysmal atrial fibrillation
Anticoagulation with Pradaxa.
Type 2 diabetes.
Essential hypertension
Obstructive sleep apnea on CPAP at night
Smoker.
Giant cell arteritis on Actemra.
Dyslipidemia
Obesity with BMI of 32.
BPH
GERD
Plan:
Acute CHF preserved EF (mildly elevated LVEDP)
Persistent chest pain, accelerated with minimal exertion
Recent Lexiscan stress test with no evidence of ischemia.
ECG with no ischemia.
Echocardiogram 02/05 with preserved left ventricular function without regional wall motion abnormalities.
Cardiac cath on 02/06 with nonobstructive CAD. Noted with LVEDP 21
Optimize medical therapy
add beta-cehy
IV with transition to oral diuresis
Continue aspirin
Paroxysmal atrial fibrillation.
ECG on presentation with sinus rhythm.
Continue diltiazem
Resume Pradaxa post cath
Hyperlipidemia
-Continue Crestor and Zetia
Prediabetes
-HgbA1c 5.7 in October 2023
-Continue diabetic diet
GERD
-Continue Protonix
BPH
-Continue Flomax
Tobacco Use Disorder
-Encourage smoking cessation
Constipation
Start MiraLAX
DVT proph: Pradaxa
Code Status: Full Code
Anticipated Discharge: 24 - 48 hours
Subjective/Interval History
-
Date of Service: February 08, 2024
Objective Data
-
Labs:
Laboratory Results
02/08/24
07:23
WBC 5.5
Hgb 15.1
Hct 44.1
Plt Count 138
Sodium 140
Potassium 4.3
Chloride 100
Carbon Dioxide 28
BUN 19
Creatinine 1.0
Glucose 97
Calcium 9.1
Vital Signs:
Vital Signs
Temp Pulse Resp BP Pulse Ox
97.9 F 78 18 128/61 97
02/08/24 15:22 02/08/24 15:22 02/08/24 15:22 02/08/24 15:22 02/08/24 15:22
I&O
02/07/24 02/08/24 02/09/24
06:59 06:59 06:59
Intake Total 860 / 860 720 / 720
Output Total 350 / 350
Balance 860 / 860 370 / 370
Physical Exam
-
General: Well Developed and No Apparent Distress
HEENT: Normocephalic, Atraumatic and Moist Mucous Membranes
Respiratory: Clear to Auscultation
Cardiac: Regular Rhythm and S1/S2; Negative Murmur, Rub or Gallop
GI: Soft, Nontender, Nondistended and Normal Bowel Sounds; Negative Organomegaly
Rectal: Deferred by Provider
Musculoskeletal: No Clubbing, No Cyanosis and No Edema
Skin: Negative Rash
Neuro: Nonfocal/Grossly Intact
--- NOTE | 2024-02-08 16:15 | PTCARENOTE ---
Pt AAO x3, [place] well, ambulatory in room/block, jennifer well, no c/o weakness/dizziness. VSS. Telemetry:Currently NSR with bigeminy; occ trigeminy. pt occ c/o palpitations with OOB activity. On room air- pulse ox 97%, no c/o SOB. Abd obese, soft, jennifer
PO. Voids mod amts clear kimmy urine in BR/urinal; pt instructed to void in urinal d/t being on PO Lasix. Resting in bed at present. Will continue to monitor.
[2024-02-08] MEDS: CRESTOR 10 MG PO (17:35)
[2024-02-08] MEDS: ZETIA 10 MG PO (17:35)
[2024-02-08 19:30] VITALS: BP 129/64
[2024-02-08] MEDS: MELATONIN 5 MG PO (21:40)
[2024-02-08 23:28] VITALS: BP 115/60
[2024-02-09 03:19] VITALS: BP 121/66
[2024-02-09 06:00] VITALS: BMI 31.9
[2024-02-09 07:15] VITALS: BP 110/65
[2024-02-09] MEDS: FLOMAX 0.4 MG PO (08:15)
[2024-02-09] MEDS: PROSCAR 5 MG PO (08:15)
[2024-02-09] MEDS: COZAAR 25 MG PO (08:15)
[2024-02-09] MEDS: PRADAXA 150 MG PO (08:15)
[2024-02-09] MEDS: TOPROL XL 50 MG PO (08:15)
[2024-02-09] MEDS: LASIX 20 MG PO (08:15)
[2024-02-09] MEDS: CARDIZEM CD 240 MG PO (08:15)
[2024-02-09] MEDS: PROTONIX 40 MG PO (08:15)
[2024-02-09] MEDS: LOW STRENGTH ASPIRIN 81 MG PO (08:16)
[2024-02-09] MEDS: MIRALAX 17 GRAMS PO (08:16)
--- NOTE | 2024-02-09 08:35 | W.PN.CARDCBS ---
Addendum entered and electronically signed by Judy Bailey DO 02/09/24 16:53:
I saw and examined the patient.
The [employer]Rd Mate's note was reviewed and I agree with the note.
Comment: Patient seen and examined overall feels better with less shortness of breath and palpitations. No chest pain.
General: No acute distress, AAOX3
Heart: Regular, positive S1/S2, no murmur
Lungs: CTA b/l, negative wheezes/rales/rhonchi
Abd: Positive BS, NT/ND, neg rebound/rigidity/guarding
Ext: no edema
Plan:
Nonobstructive coronary artery disease status post cardiac catheterization 02/07/2024 with elevated LVEDP and serially negative cardiac troponins
-Shortness of breath symptoms have improved with Lasix and increase beta-chey for reduced PVC burden
-If symptoms persist could consider addition of Ranexa or nitrates as an outpatient for possible microvascular disease
-Repeat basic metabolic profile in 1 week
-Will arrange outpatient cardiac follow-up
History of paroxysmal atrial fibrillation on chronic anticoagualtion in sinus rhythm with frequent PVCs
-Metoprolol increased; continue Cardizem
-Continue anticoagulation
-Consider outpatient [employer]
History of sleep apnea followed by pulmonary
Original Note:
Today's Communication / Plan
-
-beta chey uptitrated due to freq PVCs -palpitations improved
-cath showed nonobstructive CAD with elevated LVEDP - started Lasix
-stable for discharge from CV standpoint
-check BMP 1 week after discharge
Impression / Plan
-
PCP:Caleb Morgan
Regional Environmental Manager: Dr. YANIRA Palomo
Impression:
Chest pain, [place]
Coronary calcification
Nonobstructive CAD by cath 02/07/24
Paroxysmal atrial fibrillation
Chronic Xarelto OAC
last dose 02/05/24 AM
DM 2
Smoker
Hypertension
Obstructive sleep apnea
Giant cell arteritis on Actemra
Hypercholesterolemia
Obesity
Acute HFpEF
Symptomatic PVCs, bigeminy
7-day outpatient monitor completed 01/26/24: Predominantly sinus rhythm with 4 episodes of atrial tachycardia longest 24 beats, PACs 0.1%, PVCs 17% with frequent ventricular pairs but no sustained VT. Symptoms correlated with PVCs. Monitor was
performed on Toprol 50 mg twice a day.
Echo 07/04/22: EF 60 to 65%, normal regional wall motion, trace MR, small pericardial effusion without hemodynamic compromise
Echo 02/06/2024: EF 56%, diastolic function indeterminant, normal regional wall motion, trace MR, small pericardial effusion without evidence of hemodynamic compromise
Plan:
-Patient had serially undetectable Troponin levels and then nonobstructive CAD by cath.
-LVEDP 21 and patient given Lasix 20 mg IV x1 on 02/07/24 and then ordered Lasix 20 mg PO daily starting 02/08/24. Cre and BP stable.
-EF preserved by echo this admission
-Outpatient dose of Cardizem CD 240 mg daily continued and Toprol XL 25 mg daily added, and subsequently uptitrated to 50 mg bid due to PVCs
-Losartan initially started but stopped to allow uptitration of beta chey
-cost of [id number] - Farxiga 10 mg daily-Farxiga not covered, [employer] $348/month. Will hold off on starting but readdress costs/coverage in outpt setting
-Outpatient dose of PRadaxa 150 mg BID restarted 02/08/24 AM
-Patient with symptomatic PVCs. Outpatient dose of Cardizem CD 240 mg daily continued and Toprol XL added this admission
-mild wheezing on exam this morning-pt denies SOB and O2 sat 98% on RA- monitor - if worsens may need to decrease beta chey
-consider outpatient [employer] insurance
-D/C to home 02/09/24
-outpatient f/u with Dr Palomo has been made
HPI 02/05/2024:
Patient came to the ER today with chest pain that started last night and has been persistent, cardiology is now consulted. Patient was seen in ER for palpitations on 01/18/2024 and then followed up with Dr. Palomo in the office on 01/19/2024. At
that time the patient appeared to be having symptomatic PVCs and he was started on Toprol XL 50 mg twice daily plus a PRN of Lopressor 25 mg twice daily palpitations. Dr. Palomo also noted at that time that the patient history of coronary artery
calcification but no recent stress test on study and so patient was sent for a Lexiscan nuclear stress test to exclude obstructive CAD. Despite increased medications and plan for stress testing the patient return to ER on 01/22/2024 with
complaints of bradycardia and dizziness. Patient was checking his heart rate using a pulse ox at home and it was felt that this was creating a falsely low heart rate on pulse ox check. Following serially undetectable troponin levels the patient
was discharged to home and then completed his outpatient stress test as scheduled on 01/24/2024. Lexiscan nuclear stress test revealed a moderate, mild, fixed inferior perfusion defect which improves with prone imaging suggesting attenuation, no
significant ischemia. Stress test was considered moderate risk due to Lexiscan used as testing agent. Patient reports that he has had chest pain daily for the last 3 weeks. Chest pain is now happening at lower levels of activity. Three weeks ago he
could walk 50 ft without chest pain and now he can only walk 5-10 feet before he starts with chest pain. No syncope. He has DELONG as well. He is a longtime smoker with LAI, but reports wearing his CPAP nightly without fail. This episode of chest pain
started last night and was constant until he asked his friend to drive him to the hospital this morning. Chest pain is worse with activity and improves with rest. He can feel palpitations.
Progress Note - Regional Environmental Manager
Subjective
Date of Service: February 09, 2024
-palpitations improved
-no lightheadedness but feels a little off balance when gets up to walk to bathroom
-no chest pain
Objective
Labs:
02/08/24 07:23
02/08/24 07:23
Labs
Hgb 15.1 g/dL (13.0-18.0) 02/08/24 07:23
Hct 44.1 % (39.0-52.0) 02/08/24 07:23
Plt Count 138 10^3/uL (130-400) 02/08/24 07:23
Sodium 140 mmol/L (135-145) 02/08/24 07:23
Potassium 4.3 mmol/L (3.5-5.1) 02/08/24 07:23
BUN 19 mg/dl (9-20) 02/08/24 07:23
Creatinine 1.0 mg/dL (0.7-1.3) 02/08/24 07:23
Glucose 97 mg/dl (70-99) 02/08/24 07:23
Vital Signs and I&O:
Vital Signs
Temp Pulse Resp BP Pulse Ox
98 F 78 18 110/65 98
02/09/24 07:15 02/09/24 08:15 02/09/24 07:15 02/09/24 08:15 02/09/24 07:15
Vital Signs
Temp Pulse Resp BP Pulse Ox
98 F 78 18 110/65 98
02/09/24 07:15 02/09/24 08:15 02/09/24 07:15 02/09/24 08:15 02/09/24 07:15
Intake & Output
02/07/24 02/08/24 02/09/24 02/10/24
06:59 06:59 06:59 06:59
Intake Total 860 / 860 720 / 720 900 / 900
Output Total 350 / 350 950 / 950
Balance 860 / 860 370 / 370 -50 / -50
Physical Exam
Physical Exam
GEN: No distress, awake, Ox3
HEENT: supple, anicteric, mmm
LUNGS: + faint exp wheeze
CV: Reg, S1/S2, freq ectopic beats,, no murmur
ABD: soft, BS+, NT/ND
EXT: No edema
NEURO: Gross non-focal
SKIN: No rash
[2024-02-09 11:06] VITALS: BP 111/58
--- NOTE | 2024-02-09 11:54 | W.DS.TRANS ---
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
-
Discharge Instructions:
Discharge Diagnosis/Procedures Cardiac cath
Non obstructive CAD
CHF
PVC
Diet 2 Gram Sodium,Restrict fluids to 64 oz
Driving Restrictions No driving for 24 hours
Blood Work check BMP 1 week after discharge
Specialty Instructions Weigh Daily
Instructions:
Stand-Alone Forms: DC Instructions- Cath/EP Lab
Changes to Home Medications: Yes
Discharge Medications:
DC Medications w/original date entered in [email or web address]
tamsulosin 0.4 mg capsule 0.4 mg PO BID Urinary issue 02/17/21
dabigatran etexilate 150 mg capsule (Pradaxa) 150 mg PO BID Blood Clot Prevention/Tx 01/23/23
acetaminophen 325 mg tablet (Tylenol) 650 mg PO Q6HPRN PRN headaches 02/05/24
diltiazem HCl 240 mg capsule,24 hr,extended release 240 mg PO DAILY Blood Pressure 02/05/24
ezetimibe 10 mg tablet (Zetia) 10 mg PO QPM High Cholesterol 02/05/24
finasteride 5 mg tablet 5 mg PO DAILY Urinary Issue 02/05/24
pantoprazole 40 mg tablet,delayed release (Protonix) 40 mg PO DAILY Gastrointestinal Issue 02/05/24
rosuvastatin 10 mg tablet (Crestor) 10 mg PO QPM High Cholesterol 02/05/24
dapagliflozin propanediol 10 mg tablet (Farxiga) 10 mg PO DAILY Heart disease/condition #30 tabs 02/08/24
aspirin 81 mg chewable tablet 81 mg PO DAILY #30 tabs 02/09/24
furosemide 20 mg tablet 20 mg PO DAILY #30 tabs 02/09/24
metoprolol succinate 50 mg tablet,extended release 24 hr 50 mg PO BID #30 tabs 02/09/24
polyethylene glycol 3350 17 gram oral powder packet (HealthyLax) 17 g PO DAILY #30 ea 02/09/24
Home Medication Changes
Aspirin, Farxiga, metoprolol, Lasix initiated
Pending Results: No
--- NOTE | 2024-02-09 14:17 | CM ---
Pt denies any needs at dc.
PCP: Caleb Morgan
Pharmacy: [facility] in [place]
Plan: dc home today with no identified needs.
== END 2024-02-09 13:49 | disposition home or self-care (01) | DRG 286 ==
LOC: 4 EAST ACU 10:30
PROVIDERS: Nurse Practitioner Adult Health; Physician Assistant Medical; Student in an Organized Health Care Education/Training Program; ADMITTING PHYSICIAN Hospitalist; ATTENDING PHYSICIAN Internal Medicine; CONSULT PHYSICIAN Nuclear Medicine Nuclear Cardiology; EMERGENCY PHYSICIAN Emergency Medicine; FAMILY PHYSICIAN Family Medicine
PROC: 5A09357 Assistance with Respiratory Ventilation, Less than 24 Consecutive Hours, Continuous Positive Airway Pressure (ICD-10-PCS; 2024-02-05)
PROC: B240ZZ3 Ultrasonography of Single Coronary Artery, Intravascular (ICD-10-PCS; 2024-02-07)
PROC: 4A023N7 Measurement of Cardiac Sampling and Pressure, Left Heart, Percutaneous Approach (ICD-10-PCS; 2024-02-07)
PROC: B2111ZZ Fluoroscopy of Multiple Coronary Arteries using Low Osmolar Contrast (ICD-10-PCS; 2024-02-07)
DX: I25.110 Atherosclerotic heart disease of native coronary artery with unstable angina pectoris (principal); I50.31 Acute diastolic (congestive) heart failure; I48.0 Paroxysmal atrial fibrillation; I11.0 Hypertensive heart disease with heart failure; G47.33 Obstructive sleep apnea (adult) (pediatric); N40.0 Benign prostatic hyperplasia without lower urinary tract symptoms; E78.00 Pure hypercholesterolemia, unspecified; E66.01 Morbid (severe) obesity due to excess calories; H53.8 Other visual disturbances; F17.210 Nicotine dependence, cigarettes, uncomplicated; K59.00 Constipation, unspecified; I49.3 Ventricular premature depolarization; R00.8 Other abnormalities of heart beat; E11.9 Type 2 diabetes mellitus without complications; J44.9 Chronic obstructive pulmonary disease, unspecified; K21.9 Gastro-esophageal reflux disease without esophagitis; M31.6 Other giant cell arteritis; Z79.02 Long term (current) use of antithrombotics/antiplatelets; Z79.01 Long term (current) use of anticoagulants; Z87.442 Personal history of urinary calculi; Z68.32 Body mass index [BMI] 32.0-32.9, adult
CPT/HCPCS: 71046; 80048; 80053; 80061; 83735; 83880; 84443; 84484; 85025; 85027; 85347; 92978; 93005; 93306; 93458; 99152; 99153; 99285; C1753; C1769; C1894; Q9967

== ENCOUNTER 2024-02-14 22:08 | Emergency (ER) | payer MEDICARE, OTHER, SELFPAY ==
[2024-02-14 22:20] VITALS: BP 124/57
[2024-02-14 22:36] VITALS: BP 116/71; BMI 32.8
[2024-02-14 22:43] LABS: % Basophils 0.2 % (0-2); % Eosinophils 3.8 % (0-6); % Immature Granulocytes 0.5 % (0-0.5); % Lymphocytes 37.6 % (20.5-51.1); % Neutrophils 48.9 % (42.2-75.2); Absolute Eosinophils 0.3 10^3/uL (0-0.7); Absolute Lymphocytes 3.2 10^3/uL (1.2-3.4); Absolute Monocytes 0.8 10^3/uL (0.1-0.6); Absolute Neutrophils 4.2 10^3/uL (1.4-6.5); Hematocrit 42.5 % (39.0-52.0); Hemoglobin 14.9 g/dL (13.0-18.0); Mean Corp Hgb Conc. 35.1 g/dL (33.0-37.0); Mean Corpuscular Hgb 29.3 pg (27.0-31.0); Mean Corpuscular Volume 83.5 fL (80.0-94.0); Mean Platelet Volume 10.7 fL (7.4-10.4); Nucleated Red Blood Cells % 0 % (-); Platelet Count 186 10^3/uL (130-400); Red Blood Cell Count 5.09 10^6/uL (4.70-6.10); Red Cell Dist. Width 13.5 % (11.5-14.5); White Blood Cell Count 8.5 10^3/uL (4.8-10.8)
[2024-02-14 23:00] VITALS: BP 120/53
[2024-02-14 23:06] LABS: NT-proBNP 547 pg/ml; Troponin I < 0.012 ng/ml
--- NOTE | 2024-02-14 23:21 | ED.GENMED ---
History of Present Illness
General
Chief Complaint: Chest Pain
Source: patient
Time Seen by Provider: 02/14/24 22:43
History of Present Illness
History of Present Illness:
This patient is a 73-year-old male presents emergency department with complaints of dyspnea and central chest discomfort. He states he was in the hospital recently for this, had a full workup including a catheter which showed nonobstructive CAD and
went home. Today he again noticed the symptoms, checked his vital signs dates that his heart rate was 34 with a blood pressure of 100/51 which prompted his visit here. Prior discharge summary reviewed, at that time patient was started on a
beta-chey. Patient denies leg swelling, fever, chills, nausea, vomiting, anorexia, cough, abdominal pain, back pain, headache, dizziness, or other complaints. Patient is compliant with his medications. He has minimal symptoms now. He states
that symptoms seem to happen specifically after he eats which is what happened tonight at dinner and around 6 PM.
Past History
Past History
ED Past Medical History: Arrthythmia, CAD, HTN, Hypercholesterolemia and Other (Morbidly obese, giant cell arteritis, sleep apnea)
ED Past Surgical History: Orthopedic (Low back)
Social History
Tobacco: Smoker (2 packs of cigarettes for 30 years, 7 to 8 cigarettes per last 20 years.)
Alcohol: None
Drug: None
Personal:
Living: with family
Employment: Employed
Family History
Family History: Hypertension
Phy Exam
Physical Exam
Physical Exam:
GENERAL: Alert , in no apparent distress
EYE: pupils equal and reactive
NECK: Supple, no significant adenopathy.
ENT: o/p clr, mmm.
CARDIAC: Regular rate and rhythm .
LUNGS: Clear breath sounds bilaterally, no acute respiratory distress, no wheezes/rales/rhonchi
ABDOMEN: Soft, without focal tenderness, no r/g, no cvat
NEUROLOGICAL: Alert and oriented, no focal neuro deficits
SKIN: Warm and dry, skin intact.
MUSCULOSKELETAL: No edema, well perfused.
PSYCH: Normal and appropriate interaction.
Course
Orders/Labs/Results
Orders:
Orders
02/14/24 22:09
ECG [Electrocardiogram (*1)] Urgent
Reason for Study: Chest Pain
EKG- Treatment ONCE
02/14/24 22:13
Cardiac Monitoring- Treatment ONCE
IV Insert/Care/Rem.- Treatment PRN
O2 Therapy [RESP] Urgent
Titrate/Wean O2 to maintain O2 sat greater than (%): 90
Special Instructions: Maintain sats >/=90%
Pulse Ox/spot Check [RESP] Urgent
Quantity: 1
Special Instructions: ON ROOM AIR
02/14/24 22:29
Chest [CR Chest - 2 Views ] Urgent
Comment:
Reason For Exam: CP/SOB
02/14/24 22:37
BNP [NT-proBNP] Urgent
Complete Blood Count/With Diff Urgent
Troponin I Urgent
02/14/24 22:55
Comprehensive Metabolic Panel Urgent
02/15/24 01:24
Troponin I Urgent
02/15/24 02:08
Mag Hydrox/Al Hydrox/Simeth [Maalox] 30 ml Phenobarb/Hyoscy/Atropine/Scop [] 10 ml Viscous Lidocaine 2% [Xylocaine Viscous Cup] 10 ml PO NOW
Abnormal Lab Results
02/14/24 02/14/24
22:37 22:55
MPV 10.7 H fL
(7.4-10.4)
Absolute Monos (auto) 0.8 H 10^3/uL
(0.1-0.6)
Glucose 103 H mg/dl
(70-99)
02/14/24 22:37
02/14/24 22:55
Vital Signs
Initial and Last Documented VS:
Initial Vital Signs
Temp Pulse Resp BP Pulse Ox
98.6 F 37 24 124/57 100
02/14/24 22:20 02/14/24 22:20 02/14/24 22:20 02/14/24 22:20 02/14/24 22:20
Last Documented Vital Signs
Temp Pulse Resp BP Pulse Ox
98.6 F 65 23 120/58 97
02/14/24 22:20 02/15/24 01:00 02/15/24 01:00 02/15/24 01:00 02/15/24 01:00
Update Note
Update Note:
Patient presents to the Emergency Department with __dyspnea and chest pain
Number and Complexity of Problems Addressed at the Encounter
� Chronic conditions affecting care:
� Acute Exacerbation and/or Progression of Chronic Illness:
� Differential Diagnosis includes: ACS, PE, anxiety, pleural effusion, pleurisy, etc. etc.
Amount and/or Complexity of Data to be Reviewed and Analyzed
� I performed an independent evaluation of and my interpretation is:
EKG: Read by me, normal sinus rhythm with frequent PVCs in a bigeminy pattern, slightly low voltage, no acute ischemia, in comparison to 02/04, more pvc's noted
CT:
Xrays:cxr read by me nad
Laboratory Studies:GENERALLY UNREMKARABLE
Other:
� Review of other/old records reveals: echo lv ef 56%, trace mr, small pericardial effusion, nl lv size, nl wall motion
� Clinical information was obtained by an independent historian:
� Prescriptions/Medications Considered but not given:
� Further testing considered but not performed:
Risk of Complications and/or Morbidity or Mortality of Patient Management
� Social determinants of health affecting care:
� Discussion with other providers (PCP, Hospitalists, Consultants, etc):
� Escalation of care including admission/observation vs risk of discharge considered:212 am prolonged observation here, no arrhythmia, no bradycardia while on monitor, pt was slpeeing for some time. He descrives discomfort that
is 'burning' from epigastric up to chest, espec after eating. He is already treated for gerd, compliant with meds. Frequent burping. Do not suspect acs/cardiac cause. Lebron cardia noted on initial vitals, ?mistaken/artifact based on pts pvc's?
No bradycardia here whil ein room...nonetheless, recommend d/c beta blcoker (which was just added to his meds) until d/w cards. d/w pt import of f/u and reasons to rted.
ED Attending Note
-
Portions of this chart may have been created with voice recognition software.� Occasional wrong word or��sound alike� substitutions may have occurred due to the inherent limitations of voice recognition software.
Discharge Plan
Departure
Patient Disposition: Home (Routine Discharge)
Date of Disposition: 02/15/24
Time of Disposition: 02:09
Patient with high blood pressure during this ER visit?: Yes
Condition: Good
Discharge Problem:
Chest pain
Instructions: Chest Pain DCA Follow Up, BLOOD PRESSURE
Prescriptions:
New
sucralfate [Carafate] 1 gram tablet
1 g PO AC Qty: 30 0RF
No Action
tamsulosin 0.4 MG capsule
0.4 mg PO BID
dabigatran etexilate [Pradaxa] 150 mg Capsule
150 mg PO BID
acetaminophen [Tylenol] 325 mg Tablet
650 mg PO Q6HPRN PRN (Reason: headaches)
finasteride 5 mg Tablet
5 mg PO DAILY
ezetimibe [Zetia] 10 mg Tablet
10 mg PO QPM
rosuvastatin [Crestor] 10 mg Tablet
10 mg PO QPM
pantoprazole [Protonix] 40 mg tablet,delayed release (DR/EC)
40 mg PO DAILY
diltiazem HCl 240 mg Capsule,Extended Release 24 Hr
240 mg PO DAILY
dapagliflozin propanediol [Farxiga] 10 mg tablet
10 mg PO DAILY Qty: 30 11RF
aspirin 81 mg Tablet,Chewable
81 mg PO DAILY Qty: 30 0RF
furosemide 20 mg Tablet
20 mg PO DAILY Qty: 30 0RF
polyethylene glycol 3350 [HealthyLax] 17 gram Powder In Packet
17 g PO DAILY Qty: 30 0RF
metoprolol succinate 50 mg Tablet Extended Release 24 Hr
50 mg PO BID Qty: 30 0RF
Referrals:
Caleb Morgan MD [Family Provider] -
Activity Restrictions/Additional Instructions:
PLEASE DISCONTINUE TAKING METOPROLOL UNTIL YOU SPEAK TO YOUR WAX CUTTER. CALL YOUR GI DOCTOR FOR CLOSE FOLLOW UP. IF YOU DEVELOP INCREASING/NEW PAIN, FEVER, VOMITING, PERSISTENT TROUBLE BREATHING, SWELLING, ABDOMINAL PAIN, OR OTHER WORRISOME
SIGNS, GO TO THE ER IMMEDIATELY!
Interventions
Interventions:
*Risk Screen - Suicide Last Done: 02/14/24 22:20
*Neglect/Abuse Screening Last Done: 02/14/24 22:20
ED- Cardiac Assessment Last Done: 02/14/24 22:38
Discharge Date and Time
Print Language: SRI LANKAN
[2024-02-14 23:25] LABS: ALT (SGPT) 21 U/L (0-50); AST (SGOT) 23 U/L (17-59); Albumin 3.9 g/dl (3.5-5.0); Alkaline Phosphatase 53 U/L (38-126); Blood Urea Nitrogen 17 mg/dl (9-20); Calcium 8.9 mg/dl (8.4-10.2); Carbon Dioxide 26 mmol/L (22-30); Chloride 105 mmol/L (98-107); Estimated Creatinine Clearance 79 ml/min; Glucose 103 mg/dl (70-99); Potassium 3.6 mmol/L (3.5-5.1); Sodium 143 mmol/L (135-145); Total Bilirubin 0.5 mg/dl (0.2-1.3); Total Protein 6.4 g/dl (6.3-8.2); eGFR > 60.00
[2024-02-15] VITALS: BP 120/55
[2024-02-15 01:00] VITALS: BP 120/58
[2024-02-15 01:57] LABS: Troponin I < 0.012 ng/ml
[2024-02-15 02:00] VITALS: BP 114/57
[2024-02-15] MEDS: MAALOX 50 PO (02:19)
== END 2024-02-15 02:46 | disposition home or self-care (01) ==
LOC: EMR 22:08
PROVIDERS: EMERGENCY PHYSICIAN Emergency Medicine; FAMILY PHYSICIAN Family Medicine
DX: R07.89 Other chest pain (principal); I25.10 Atherosclerotic heart disease of native coronary artery without angina pectoris; I10 Essential (primary) hypertension; G47.30 Sleep apnea, unspecified; F17.210 Nicotine dependence, cigarettes, uncomplicated; E78.00 Pure hypercholesterolemia, unspecified; K21.9 Gastro-esophageal reflux disease without esophagitis; Z79.899 Other long term (current) drug therapy
CPT/HCPCS: 99285; 71046; 80053; 83880; 84484; 85025; 93005

== ENCOUNTER → 2024-02-16 07:55 | Outpatient (REF) | payer MEDICARE, OTHER, SELFPAY ==
[2024-02-16 09:33] LABS: % Basophils 0.2 % (0-2); % Eosinophils 4.4 % (0-6); % Immature Granulocytes 0.5 % (0-0.5); % Lymphocytes 34.2 % (20.5-51.1); % Monocytes 7.3 % (1.7-9.3); % Neutrophils 53.4 % (42.2-75.2); Absolute Eosinophils 0.3 10^3/uL (0-0.7); Absolute Lymphocytes 2.2 10^3/uL (1.2-3.4); Absolute Monocytes 0.5 10^3/uL (0.1-0.6); Absolute Neutrophils 3.4 10^3/uL (1.4-6.5); Hematocrit 43.2 % (39.0-52.0); Hemoglobin 14.8 g/dL (13.0-18.0); Mean Corp Hgb Conc. 34.3 g/dL (33.0-37.0); Mean Corpuscular Hgb 30.4 pg (27.0-31.0); Mean Corpuscular Volume 88.7 fL (80.0-94.0); Mean Platelet Volume 11.4 fL (7.4-10.4); Nucleated Red Blood Cells % 0 % (-); Platelet Count 176 10^3/uL (130-400); Red Blood Cell Count 4.87 10^6/uL (4.70-6.10); Red Cell Dist. Width 13.5 % (11.5-14.5); White Blood Cell Count 6.3 10^3/uL (4.8-10.8)
[2024-02-16 09:41] LABS: ALT (SGPT) 20 U/L (0-50); AST (SGOT) 22 U/L (17-59); Albumin 3.9 g/dl (3.5-5.0); Alkaline Phosphatase 49 U/L (38-126); Blood Urea Nitrogen 14 mg/dl (9-20); Calcium 9.2 mg/dl (8.4-10.2); Carbon Dioxide 30 mmol/L (22-30); Chloride 102 mmol/L (98-107); Glucose 110 mg/dl (70-99); Potassium 4.3 mmol/L (3.5-5.1); Sodium 141 mmol/L (135-145); Total Bilirubin 0.7 mg/dl (0.2-1.3); Total Protein 6.3 g/dl (6.3-8.2); eGFR > 60.00
[2024-02-16 10:13] LABS: Erythrocyte Sed Rate 22 mm/hour (0-20)
== END ==
LOC: HWLAB 07:55
PROVIDERS: ATTENDING PHYSICIAN Internal Medicine Rheumatology; FAMILY PHYSICIAN Family Medicine
DX: M31.6 Other giant cell arteritis (principal)
CPT/HCPCS: 36415; 80053; 85025; 85652; 86140

== ENCOUNTER → 2024-02-29 07:06 | Outpatient (REF) | payer MEDICARE, OTHER, SELFPAY | LOC: RSP 07:06 | PROVIDERS: ATTENDING PHYSICIAN Family Medicine | DX: R06.09 Other forms of dyspnea (principal) | CPT/HCPCS: 94727; 94729; 94010 ==

== ENCOUNTER → 2024-06-10 07:00 | Outpatient (REF) | payer MEDICARE, OTHER, SELFPAY ==
[2024-06-10 09:40] LABS: ALT (SGPT) 19 U/L (0-50); AST (SGOT) 26 U/L (17-59); Albumin 4.2 g/dl (3.5-5.0); Alkaline Phosphatase 68 U/L (38-126); Blood Urea Nitrogen 16 mg/dl (9-20); Calcium 9.6 mg/dl (8.4-10.2); Carbon Dioxide 31 mmol/L (22-30); Chloride 100 mmol/L (98-107); Glucose 114 mg/dl (70-99); HDL Cholesterol 46 mg/dl; LDL Cholesterol, Calculated 101 mg/dl; Magnesium 2.2 mg/dl (1.6-2.3); Potassium 4.2 mmol/L (3.5-5.1); Sodium 138 mmol/L (135-145); Total Cholesterol 164 mg/dl (50-199); Total Protein 6.7 g/dl (6.3-8.2); Triglyceride 87 mg/dl (10-149); Very Low Density Lipoprotein 17 mg/dl (0-30); eGFR > 60.00
== END ==
LOC: HWLAB 07:00
PROVIDERS: ATTENDING PHYSICIAN Internal Medicine Cardiovascular Disease; FAMILY PHYSICIAN Family Medicine
DX: E78.2 Mixed hyperlipidemia (principal); I10 Essential (primary) hypertension
CPT/HCPCS: 36415; 80053; 80061; 83735

== ENCOUNTER → 2024-07-03 12:15 | Outpatient (REF) | payer MEDICARE, OTHER, SELFPAY ==
[2024-07-03 15:42] LABS: ALT (SGPT) 20 U/L (0-50); AST (SGOT) 22 U/L (17-59); Albumin 4.4 g/dl (3.5-5.0); Alkaline Phosphatase 60 U/L (38-126); Blood Urea Nitrogen 14 mg/dl (9-20); Calcium 9.4 mg/dl (8.4-10.2); Carbon Dioxide 31 mmol/L (22-30); Chloride 99 mmol/L (98-107); Glucose 106 mg/dl (70-99); Potassium 4.1 mmol/L (3.5-5.1); Sodium 138 mmol/L (135-145); Total Bilirubin 0.8 mg/dl (0.2-1.3); Total Protein 6.9 g/dl (6.3-8.2); eGFR > 60.00
[2024-07-03 15:51] LABS: Hematocrit 46.5 % (39.0-52.0); Hemoglobin 15.4 g/dL (13.0-18.0); Mean Corp Hgb Conc. 33.1 g/dL (33.0-37.0); Mean Corpuscular Hgb 29.1 pg (27.0-31.0); Mean Corpuscular Volume 87.9 fL (80.0-94.0); Mean Platelet Volume 10.7 fL (7.4-10.4); Platelet Count 174 10^3/uL (130-400); Red Blood Cell Count 5.29 10^6/uL (4.70-6.10); Red Cell Dist. Width 14.3 % (11.5-14.5)
[2024-07-03 17:06] LABS: Erythrocyte Sed Rate 7 mm/hour (0-20)
== END ==
LOC: HWLAB 12:15
PROVIDERS: ATTENDING PHYSICIAN Internal Medicine Rheumatology; FAMILY PHYSICIAN Family Medicine
DX: M31.6 Other giant cell arteritis (principal)
CPT/HCPCS: 36415; 80053; 85027; 85652; 86140

== ENCOUNTER → 2024-07-29 13:28 | Outpatient (REF) | payer MEDICARE, OTHER, SELFPAY | LOC: HWRAD 13:28 | PROVIDERS: ATTENDING PHYSICIAN Internal Medicine Critical Care Medicine; FAMILY PHYSICIAN Family Medicine | DX: Z87.891 Personal history of nicotine dependence (principal) | CPT/HCPCS: 71271 ==

== ENCOUNTER → 2024-10-09 06:12 | Outpatient (REF) | payer MEDICARE, OTHER, SELFPAY ==
[2024-10-09 09:44] LABS: Hematocrit 47.2 % (39.0-52.0); Hemoglobin 15.9 g/dL (13.0-18.0); Mean Corp Hgb Conc. 33.7 g/dL (33.0-37.0); Mean Corpuscular Hgb 29.2 pg (27.0-31.0); Mean Corpuscular Volume 86.8 fL (80.0-94.0); Mean Platelet Volume 10.3 fL (7.4-10.4); Platelet Count 185 10^3/uL (130-400); Red Blood Cell Count 5.44 10^6/uL (4.70-6.10); Red Cell Dist. Width 14.9 % (11.5-14.5); White Blood Cell Count 7.6 10^3/uL (4.8-10.8)
[2024-10-09 10:14] LABS: ALT (SGPT) 16 U/L (0-50); AST (SGOT) 19 U/L (17-59); Albumin 4.1 g/dl (3.5-5.0); Alkaline Phosphatase 56 U/L (38-126); Blood Urea Nitrogen 11 mg/dl (9-20); Calcium 9.3 mg/dl (8.4-10.2); Carbon Dioxide 27 mmol/L (22-30); Chloride 107 mmol/L (98-107); Glucose 95 mg/dl (70-99); Sodium 141 mmol/L (135-145); Total Bilirubin 0.7 mg/dl (0.2-1.3); Total Protein 6.7 g/dl (6.3-8.2); eGFR > 60.00
[2024-10-09 10:15] LABS: C-Reactive Protein < 5.00 mg/L (0.0-10.00)
[2024-10-09 11:15] LABS: Erythrocyte Sed Rate 19 mm/hour (0-20)
== END ==
LOC: HWLAB 06:12
PROVIDERS: ATTENDING PHYSICIAN Internal Medicine Rheumatology; FAMILY PHYSICIAN Family Medicine
DX: M31.6 Other giant cell arteritis (principal)
CPT/HCPCS: 36415; 80053; 85027; 85652; 86140

== ENCOUNTER 2024-10-19 21:00 | Emergency (ER) | payer MEDICARE, OTHER, SELFPAY ==
[2024-10-19 21:14] VITALS: BP 139/68
[2024-10-19 21:51] LABS: Hematocrit 45.4 % (39.0-52.0); Hemoglobin 15.2 g/dL (13.0-18.0); Mean Corp Hgb Conc. 33.5 g/dL (33.0-37.0); Mean Corpuscular Volume 86.6 fL (80.0-94.0); Nucleated Red Blood Cells % 0 % (-); Platelet Count 181 10^3/uL (130-400); Red Cell Dist. Width 14.6 % (11.5-14.5)
[2024-10-19 22:08] LABS: ALT (SGPT) 16 U/L (0-50); AST (SGOT) 19 U/L (17-59); Albumin 3.9 g/dl (3.5-5.0); Alkaline Phosphatase 61 U/L (38-126); Blood Urea Nitrogen 13 mg/dl (9-20); Calcium 9.1 mg/dl (8.4-10.2); Carbon Dioxide 27 mmol/L (22-30); Chloride 108 mmol/L (98-107); Glucose 119 mg/dl (70-99); Magnesium 2.1 mg/dl (1.6-2.3); Potassium 4.1 mmol/L (3.5-5.1); Sodium 139 mmol/L (135-145); Total Protein 6.3 g/dl (6.3-8.2); eGFR > 60.00
[2024-10-19 22:09] LABS: Troponin I < 0.012 ng/ml
[2024-10-19 22:44] LABS: TSH 1.49 uIU/ml (0.47-4.68)
[2024-10-19 23:27] VITALS: BP 119/74
--- NOTE | 2024-10-19 23:43 | ED.GENMED ---
History of Present Illness
<Teryr Rowland MD, Resident - Last Filed: 10/20/24 00:27>
General
Chief Complaint: Cardiac Symptoms
Source: patient and family
Time Seen by Provider: 10/19/24 23:16
Nursing documentation reviewed up to this point in time: agreed with
History of Present Illness
History of Present Illness:
This is a 74-year-old male presenting in the emergency department with complaints of palpitation and heart rate of 30s on pulse ox at home. He denies any chest pain, trouble breathing, loss of consciousness, vision changes, cough, fever, chills,
nausea/vomiting or any neurological symptoms. He was seen for similar complaints in the emergency department few months ago had a full workup done including cardiac catheterization which showed nonobstructive CAD. He follows up with Dr. Palomo
outpatient.
Patient was started on a beta-chey metoprolol during previous hospital visit and given his history of PVCs he is currently on diltiazem and metoprolol succinate in addition to Pradaxa.
Reportedly patient is compliant with the medication.
Past History
<Terry Rowland MD, Resident - Last Filed: 10/20/24 00:27>
Past History
ED Past Medical History: Arrthythmia, CAD, HTN, Hypercholesterolemia and Other (Morbidly obese, giant cell arteritis, sleep apnea)
ED Past Surgical History: Orthopedic (Low back)
Patient has exhibited threatening behavior?: No
Social History
Tobacco: Smoker (2 packs of cigarettes for 30 years, 5-6 cigarettes per last 20 years.)
Alcohol: None
Drug: None
Personal:
Living: with family
Employment: Employed
Family History
Family History: Hypertension
Review of Systems
<Terry Rowland MD, Resident - Last Filed: 10/20/24 00:27>
Review of Systems
Allergies reviewed?: Yes
Constitutional: Reports no symptoms
EENT: Reports no symptoms
Respiratory: Reports no symptoms
Cardiac: Reports palpitations
ABD/GI: Reports no symptoms
: Reports no symptoms
Musculoskeletal: Reports no symptoms
Skin: Reports no symptoms
Neurological: Reports no symptoms
Endocrine: Reports no symptoms
Hematologic/Lymphatic: Reports no symptoms
Psychiatric: Reports no symptoms
Phy Exam
<Terry Rowland MD, Resident - Last Filed: 10/20/24 00:27>
General Physical Exam
General Presentation: well appearing and no apparent distress
General age: appears stated age
General Skin: warm
General Habitus: obese
General Mental: alert
Cardiovascular Exam
Cardiovascular Exam: regular rate/rhythm, no murmur and no carotid bruit
Pulmonary Exam
Pulmonary Exam: lungs clear and no respiratory distress
Gastrointestinal Exam
Gastrointestinal Exam: normal bowel sounds, non tender, soft and non distended
Neurological Exam
Neurological Exam: alert, oriented x3, no motor deficits and no sensory deficits
Musculoskeletal Exam
Musculoskeletal Exam: full ROM
Psychiatric Exam
Psychiatric Exam: normal mood/affect
Course
<Terry Rowland MD, Resident - Last Filed: 10/20/24 00:27>
Orders/Labs/Results
Orders:
Orders
10/19/24 21:05
Electrocardiogram (*1) Urgent
Reason for Study: Chest Pain
Cardiac Monitoring- Treatment ONCE
EKG- Treatment ONCE
IV Insert/Care/Rem.- Treatment PRN
O2 Therapy [RESP] Urgent
Titrate/Wean O2 to maintain O2 sat greater than (%): 90
Special Instructions: Maintain sats >/=90%
Pulse Ox/spot Check [RESP] Urgent
Quantity: 1
Special Instructions: ON ROOM AIR
10/19/24 21:14
Complete Blood Count/With Diff Urgent
Comprehensive Metabolic Panel Urgent
Magnesium Urgent
Comment: ADD ON
NT-proBNP Urgent
Comment: ADD ON
TSH Urgent
Comment: ADD ON
Troponin I Urgent
10/19/24 21:17
Add On- LAB Urgent
Tests Added?: BNP
10/19/24 21:21
Add On- LAB Urgent
Tests Added?: TSH / Magnesium
Abnormal Lab Results
10/19/24
21:14
RDW 14.6 H %
(11.5-14.5)
MPV 10.6 H fL
(7.4-10.4)
Abs Immat Gran (auto) 0.1 H 10^3/uL
(0-0.05)
Absolute Monos (auto) 0.7 H 10^3/uL
(0.1-0.6)
Immature Gran % 0.6 H %
(0-0.5)
Chloride 108 H mmol/L
(98-107)
Glucose 119 H mg/dl
(70-99)
10/19/24 21:14
10/19/24 21:14
Vital Signs
Initial and Last Documented VS:
Initial Vital Signs
Temp Pulse Resp BP Pulse Ox
98.1 F 75 20 139/68 98
10/19/24 21:14 10/19/24 21:14 10/19/24 21:14 10/19/24 21:14 10/19/24 21:14
Last Documented Vital Signs
Temp Pulse Resp BP Pulse Ox
98.1 F 66 16 134/76 97
10/19/24 21:14 10/20/24 00:00 10/20/24 00:00 10/20/24 00:00 10/20/24 00:00
<Mark Hutton MD - Last Filed: 10/20/24 00:22>
Orders/Labs/Results
Orders:
Orders
10/19/24 21:05
Electrocardiogram (*1) Urgent
Reason for Study: Chest Pain
Cardiac Monitoring- Treatment ONCE
EKG- Treatment ONCE
IV Insert/Care/Rem.- Treatment PRN
O2 Therapy [RESP] Urgent
Titrate/Wean O2 to maintain O2 sat greater than (%): 90
Special Instructions: Maintain sats >/=90%
Pulse Ox/spot Check [RESP] Urgent
Quantity: 1
Special Instructions: ON ROOM AIR
10/19/24 21:14
Complete Blood Count/With Diff Urgent
Comprehensive Metabolic Panel Urgent
Magnesium Urgent
Comment: ADD ON
NT-proBNP Urgent
Comment: ADD ON
TSH Urgent
Comment: ADD ON
Troponin I Urgent
10/19/24 21:17
Add On- LAB Urgent
Tests Added?: BNP
10/19/24 21:21
Add On- LAB Urgent
Tests Added?: TSH / Magnesium
Abnormal Lab Results
10/19/24
21:14
RDW 14.6 H %
(11.5-14.5)
MPV 10.6 H fL
(7.4-10.4)
Abs Immat Gran (auto) 0.1 H 10^3/uL
(0-0.05)
Absolute Monos (auto) 0.7 H 10^3/uL
(0.1-0.6)
Immature Gran % 0.6 H %
(0-0.5)
Chloride 108 H mmol/L
(98-107)
Glucose 119 H mg/dl
(70-99)
10/19/24 21:14
10/19/24 21:14
Vital Signs
Initial and Last Documented VS:
Initial Vital Signs
Temp Pulse Resp BP Pulse Ox
98.1 F 75 20 139/68 98
10/19/24 21:14 10/19/24 21:14 10/19/24 21:14 10/19/24 21:14 10/19/24 21:14
Last Documented Vital Signs
Temp Pulse Resp BP Pulse Ox
98.1 F 66 16 134/76 97
10/19/24 21:14 10/20/24 00:00 10/20/24 00:00 10/20/24 00:00 10/20/24 00:00
<Terry Rowland MD, Resident - Last Filed: 10/20/24 00:27>
MDM/Problems Addressed
Differential Diagnosis Includes:
Palpitation secondary to pvc vs less likely NM vs less likely pulmonary
MDM/Problems Addressed:
CBC, cmp, Troponin, proBNP, TSH, mag unremarkable.
EKG with bigeminy; PVCs. Vital stable is stable during the stay at the hospital. Patient is stable for discharge advised to follow-up with Dr. Palomo-cardiology, outpatient. Patient voices understanding.
Chronic conditions affecting care: Arrhythmia
<Terry Rowland MD, Resident - Last Filed: 10/20/24 00:27>
*Pulse Oximetry
SaO2: 98
Oxygen Mode of Delivery: Room air
Patient hypoxic: no
*Critical Care Note
Total Time (30-74mins, 75-104mins- exclusive of procedures): Not Applicable
ED Attending Note
<Terry Rowland MD, Resident - Last Filed: 10/20/24 00:27>
-
Portions of this chart may have been created with voice recognition software.� Occasional wrong word or��sound alike� substitutions may have occurred due to the inherent limitations of voice recognition software.
<Mark Hutton MD - Last Filed: 10/20/24 00:22>
ED Attending Note
Patient seen and examined by attending physician: Yes
I performed a history and physical exam of patient and discussed management with resident, I reviewed resident's note and agree with documented findings and plan of care.: Yes
ED Attending Note:
I have seen and evaluated the patient with a [id number] encounter. I have spoken to the resident and involved in the medical history, the physical exam, medical decision making.
Evaluation and management service: agree unless noted differently below.
Results interpretation: agree unless noted differently below.
Focused HPI: 74-year-old male with a past medical history of hypertension, hyperlipidemia, atrial fibrillation on Pradaxa who presents to the ER with his for evaluation of palpitations�triage note mentions dizziness and chest pain but patient
specifically denies needs to be on review of systems. Patient reports that for the past 3 days he has an intermittent sensation of palpitations in his chest. He says that he sometimes gets an associated feeling of mild dyspnea but does not get
chest pain and does not feel dizzy and he has not passed out. He says that symptoms have not improved over the past few days which prompted him to finally come to the ER. He does note that he has been following with his heart rate using a home
pulse oximeter and occasionally his heart rate will drop as low as the 40s but he says that the monitor seems to be somewhat erratic. Currently here in the emergency room he is completely asymptomatic.
Physical exam: Awake alert not in distress. Vital signs normal. He has no cardiac rubs gallops or murmurs. Lungs are clear to auscultation. There is no JVD. He has no edema in the legs.
Medical Decision Makin-year-old male with a known history of A-fib presents for evaluation of intermittent palpitations over the past few days. He sees Dr. Sae Palomo for cardiology care. His EKG here shows sinus rhythm with frequent PVCs
and monitor shows similar. He has no AV block. Labs here reviewed he has no anemia, no significant electrolyte derangements. His troponin is undetectable. No significant elevation of proBNP. His thyroid studies are normal. Suspect that his
symptoms are due to PVCs and this might also account for erratic readings on finger pulse oximeter. He could also be having paroxysmal A-fib. He has no signs of AV block and no bradycardia on the monitor. In my judgment no clear indication for
hospital admission at this point but I do think he needs expeditious cardiology follow-up. Using shared decision making with patient will discharge with plan to follow-up with cardiology this week in the office�will refer via our 'chest pain
hotline' to help expedite follow-up. I did speak to him about strict return precautions and he feels very comfortable this plan. All questions answered.
Discharge Plan
Departure
Patient Disposition: Home (Routine Discharge)
Date of Disposition: 10/20/24
Time of Disposition: 00:15
Patient with high blood pressure during this ER visit?: No
Discharge Problem:
PVC (premature ventricular contraction), Heart palpitations
Instructions: Ventricular premature beats, Chest Pain DCA Follow Up
Prescriptions:
No Action
tamsulosin 0.4 MG capsule
0.4 mg PO BID
dabigatran etexilate [Pradaxa] 150 mg Capsule
150 mg PO BID
acetaminophen [Tylenol] 325 mg Tablet
650 mg PO Q6HPRN PRN (Reason: headaches)
finasteride 5 mg Tablet
5 mg PO DAILY
ezetimibe [Zetia] 10 mg Tablet
10 mg PO QPM
rosuvastatin [Crestor] 10 mg Tablet
10 mg PO QPM
pantoprazole [Protonix] 40 mg tablet,delayed release (DR/EC)
40 mg PO DAILY
diltiazem HCl 240 mg Capsule,Extended Release 24 Hr
240 mg PO DAILY
dapagliflozin propanediol [Farxiga] 10 mg tablet
10 mg PO DAILY Qty: 30 11RF
aspirin 81 mg Tablet,Chewable
81 mg PO DAILY Qty: 30 0RF
furosemide 20 mg Tablet
20 mg PO DAILY Qty: 30 0RF
polyethylene glycol 3350 [HealthyLax] 17 gram Powder In Packet
17 g PO DAILY Qty: 30 0RF
metoprolol succinate 50 mg Tablet Extended Release 24 Hr
50 mg PO BID Qty: 30 0RF
sucralfate [Carafate] 1 gram tablet
1 g PO AC Qty: 30 0RF
Referrals:
Caleb Morgan MD [Family Provider, Family Practice]
Sae Palomo MD [Active, Cardiology] - Call in 1-3 days for appt
Activity Restrictions/Additional Instructions:
You should follow-up with Dr. Palomo this week as we discussed. If you feel dizzy, chest pain or any other concerning symptoms return immediately to the ER to be reassessed.
Thank you for visiting the Emergency Department at [facility].
1. Please schedule a follow up appointment as directed. Call first thing tomorrow morning to make an appointment.
2. If indicated, please take your medications as instructed and indicated on discharge paperwork.
3. If any of your symptoms do not improve, or persist, or become more severe within 6-12 hours, please return to the emergency department for further care.
4. Please return to the emergency department if you develop a headache, neck pain/stiffness, fever greater than 100.4F, chest pain, shortness of breath, persistent nausea, vomiting, slurred speech, difficulty walking, numbness/tingling, weakness,
signs of infection or any other symptoms that are worrisome to you.
Please call [phone] if you have any questions.
Interventions
Interventions:
*Risk Screen - Suicide Last Done: 10/20/24 00:13
*General Assessment Last Done: 10/19/24 21:14
*Neglect/Abuse Screening Last Done: 10/20/24 00:13
*ED- Fall Risk Assessment Last Done: 10/20/24 00:13
*ED COVID-19 Vaccine History Last Done: 10/20/24 00:13
ED- Cardiac Assessment Last Done: 10/20/24 00:13
ED- Pulmonary Assessment Last Done: 10/20/24 00:13
Discharge Date and Time
Print Language: IRISH
[2024-10-20] VITALS: BP 134/76
== END 2024-10-20 00:35 | disposition home or self-care (01) ==
LOC: EMR 21:00
PROVIDERS: Emergency Medicine; EMERGENCY PHYSICIAN Emergency Medicine; FAMILY PHYSICIAN Family Medicine
DX: R00.2 Palpitations (principal); I49.3 Ventricular premature depolarization; I10 Essential (primary) hypertension; E78.00 Pure hypercholesterolemia, unspecified; I48.91 Unspecified atrial fibrillation; F17.210 Nicotine dependence, cigarettes, uncomplicated; Z79.01 Long term (current) use of anticoagulants; Z79.02 Long term (current) use of antithrombotics/antiplatelets
CPT/HCPCS: 99284; 80053; 83735; 83880; 84443; 84484; 85025; 93005

== ENCOUNTER → 2024-12-06 06:41 | Outpatient (REF) | payer MEDICARE, OTHER, SELFPAY ==
[2024-12-06 08:59] LABS: Hematocrit 47.8 % (39.0-52.0); Hemoglobin 15.5 g/dL (13.0-18.0); Mean Corp Hgb Conc. 32.4 g/dL (33.0-37.0); Mean Corpuscular Volume 87.9 fL (80.0-94.0); Platelet Count 154 10^3/uL (130-400); Red Cell Dist. Width 14.4 % (11.5-14.5)
[2024-12-06 09:13] LABS: ALT (SGPT) 15 U/L (0-50); AST (SGOT) 17 U/L (17-59); Albumin 4.0 g/dl (3.5-5.0); Alkaline Phosphatase 55 U/L (38-126); Blood Urea Nitrogen 12 mg/dl (9-20); Calcium 9.4 mg/dl (8.4-10.2); Carbon Dioxide 29 mmol/L (22-30); Chloride 105 mmol/L (98-107); Glucose 89 mg/dl (70-99); Potassium 4.2 mmol/L (3.5-5.1); Sodium 139 mmol/L (135-145); Total Protein 6.6 g/dl (6.3-8.2); eGFR > 60.00
[2024-12-06 09:16] LABS: C-Reactive Protein < 5.00 mg/L (0.0-10.00)
== END ==
LOC: HWLAB 06:41
PROVIDERS: ATTENDING PHYSICIAN Internal Medicine Rheumatology; FAMILY PHYSICIAN Family Medicine
DX: M31.6 Other giant cell arteritis (principal)
CPT/HCPCS: 36415; 80053; 85027; 85652; 86140

== ENCOUNTER → 2024-12-10 08:28 | Outpatient (REF) | payer MEDICARE, OTHER, SELFPAY | LOC: HWLAB 08:28 | PROVIDERS: ATTENDING PHYSICIAN Internal Medicine Rheumatology; FAMILY PHYSICIAN Family Medicine | DX: M31.6 Other giant cell arteritis (principal) | CPT/HCPCS: 36415; 86480 ==

== ENCOUNTER → 2025-01-02 06:40 | Outpatient (REF) | payer MEDICARE, OTHER, SELFPAY ==
[2025-01-02 10:18] LABS: Hematocrit 51.8 % (39.0-52.0); Hemoglobin 17.0 g/dL (13.0-18.0); Mean Corp Hgb Conc. 32.8 g/dL (33.0-37.0); Mean Corpuscular Volume 87.6 fL (80.0-94.0); Red Cell Dist. Width 15.9 % (11.5-14.5)
[2025-01-02 10:20] LABS: ALT (SGPT) 28 U/L (0-50); AST (SGOT) 24 U/L (17-59); Albumin 4.2 g/dl (3.5-5.0); Alkaline Phosphatase 43 U/L (38-126); Blood Urea Nitrogen 22 mg/dl (9-20); Calcium 9.2 mg/dl (8.4-10.2); Carbon Dioxide 29 mmol/L (22-30); Chloride 107 mmol/L (98-107); Glucose 88 mg/dl (70-99); Potassium 4.3 mmol/L (3.5-5.1); Sodium 139 mmol/L (135-145); Total Protein 6.6 g/dl (6.3-8.2); eGFR > 60.00
[2025-01-02 11:02] LABS: C-Reactive Protein < 5.00 mg/L (0.0-10.00)
[2025-01-02 11:40] LABS: Nucleated Red Blood Cells % 0 % (-); Platelet Count 99 10^3/uL (130-400)
== END ==
LOC: HWLAB 06:40
PROVIDERS: ATTENDING PHYSICIAN Internal Medicine Rheumatology; FAMILY PHYSICIAN Family Medicine
DX: M31.6 Other giant cell arteritis (principal)
CPT/HCPCS: 36415; 80053; 85025; 85652; 86140

== ENCOUNTER → 2025-01-22 07:16 | Outpatient (REF) | payer MEDICARE, OTHER, SELFPAY ==
[2025-01-22 09:40] LABS: Hematocrit 51.9 % (39.0-52.0); Hemoglobin 17.4 g/dL (13.0-18.0); Mean Corp Hgb Conc. 33.5 g/dL (33.0-37.0); Mean Corpuscular Volume 88.3 fL (80.0-94.0); Nucleated Red Blood Cells % 0 % (-); Platelet Count 119 10^3/uL (130-400); Red Cell Dist. Width 17.1 % (11.5-14.5)
[2025-01-22 10:05] LABS: ALT (SGPT) 32 U/L (0-50); AST (SGOT) 24 U/L (17-59); Albumin 4.2 g/dl (3.5-5.0); Alkaline Phosphatase 40 U/L (38-126); Blood Urea Nitrogen 13 mg/dl (9-20); Calcium 9.0 mg/dl (8.4-10.2); Carbon Dioxide 32 mmol/L (22-30); Chloride 103 mmol/L (98-107); Glucose 88 mg/dl (70-99); HDL Cholesterol 67 mg/dl; LDL Cholesterol, Calculated 75 mg/dl; Potassium 4.5 mmol/L (3.5-5.1); Sodium 138 mmol/L (135-145); Total Protein 6.6 g/dl (6.3-8.2); Very Low Density Lipoprotein 15 mg/dl (0-30); eGFR > 60.00
[2025-01-22 10:12] LABS: PSA, Total - Diagnostic 2.36 ng/ml (0.0-4.0)
[2025-01-22 10:53] LABS: Glycohemoglobin (HgbA1c) 5.4 % (4.0-5.6)
== END ==
LOC: HWLAB 07:16
PROVIDERS: ATTENDING PHYSICIAN Physician Assistant; FAMILY PHYSICIAN Family Medicine
DX: D69.6 Thrombocytopenia, unspecified (principal); M31.6 Other giant cell arteritis; N40.1 Benign prostatic hyperplasia with lower urinary tract symptoms; E78.2 Mixed hyperlipidemia; I10 Essential (primary) hypertension; R73.03 Prediabetes
CPT/HCPCS: 36415; 80053; 80061; 83036; 84153; 85025

== ENCOUNTER → 2025-03-10 07:22 | Outpatient (REF) | payer MEDICARE, OTHER, SELFPAY | LOC: REG 07:22 | PROVIDERS: ATTENDING PHYSICIAN Internal Medicine Gastroenterology | DX: R63.4 Abnormal weight loss (principal) | CPT/HCPCS: 36415; 84443 ==

== ENCOUNTER 2025-03-17 06:21 | Day surgery (SDC) | payer MEDICARE, OTHER, SELFPAY ==
[2025-03-17] VITALS (17 sets, daily range): BP systolic 100–139; BP diastolic 55–80; BMI 30.7
[2025-03-17] MEDS: NORMOSOL-R/PLASMALYTE-A 1000 IV (11:40)
--- NOTE | 2025-03-17 14:24 | W.IMMPOSTOP ---
Surgical Immed Post Op Note
-
Primary Surgeon: Dafne
Pre-op Diagnosis: BPH with LUTS
Post-op Diagnosis: Same
Procedure Performed: TURP
Anesthesia Type: LMA
Specimen / Cultures: Prostate chips/None
Estimated Blood Loss: Negligible
Drains: 22Fr 3-way catheter (25 cc in balloon)
Complications: None
Operative Findings: trilobar hyperplasia - resected completely down to prostatic capsule, excellent hemostasis at conclusion of procedure, final cysto w/o involvement of bilateral UOs/bladder neck/veru/external urethral sphincter.
Admit for PSR.
CBI o/n with VT in AM (0600 on 03/18).
[2025-03-17] MEDS: DETROL LA 4 MG PO (14:50)
[2025-03-17] MEDS: VALIUM INJECTION 5 MG IV (14:50)
[2025-03-17] MEDS: ZOFRAN 4 MG IV (15:17)
[2025-03-17] MEDS: DILAUDID 0.5 MG IV ×3 (15:18→16:34)
[2025-03-17] MEDS: ROXICODONE 5 MG PO (18:40)
[2025-03-17] MEDS: ZETIA 10 MG PO (18:40)
[2025-03-17] MEDS: CRESTOR 10 MG PO (18:40)
--- NOTE | 2025-03-17 20:51 | PTCARENOTE ---
Pt. wants to brush teeth in the morning.
[2025-03-17] MEDS: PROTONIX 40 MG PO (21:25)
[2025-03-17] MEDS: PROSCAR 5 MG PO (21:25)
[2025-03-17] MEDS: TOPROL XL 50 MG PO (21:25)
[2025-03-17] MEDS: FLOMAX 0.4 MG PO (21:25)
[2025-03-17] MEDS: MOTRIN 800 MG PO (22:55)
[2025-03-18] MEDS: LIDOCAINE URO-JET 2% 1 SYRINGE TOPICAL (00:57)
[2025-03-18] MEDS: ROXICODONE 5 MG PO (01:20)
[2025-03-18 03:00] VITALS: BP 124/67
[2025-03-18 06:43] LABS: Hematocrit 50.1 % (39.0-52.0); Hemoglobin 17.0 g/dL (13.0-18.0); Mean Corp Hgb Conc. 33.9 g/dL (33.0-37.0); Mean Corpuscular Volume 88.0 fL (80.0-94.0); Nucleated Red Blood Cells % 0 % (-); Platelet Count 134 10^3/uL (130-400); Red Cell Dist. Width 15.8 % (11.5-14.5)
[2025-03-18 06:54] LABS: Blood Urea Nitrogen 18 mg/dl (9-20); Calcium 9.1 mg/dl (8.4-10.2); Carbon Dioxide 25 mmol/L (22-30); Chloride 104 mmol/L (98-107); Estimated Creatinine Clearance 103 ml/min; Glucose 107 mg/dl (70-99); Potassium 4.9 mmol/L (3.5-5.1); Sodium 133 mmol/L (135-145); eGFR > 60.00
[2025-03-18 07:30] VITALS: BP 117/68
[2025-03-18] MEDS: PROTONIX 40 MG PO (08:52)
[2025-03-18] MEDS: TOPROL XL 50 MG PO (08:52)
[2025-03-18] MEDS: DETROL LA 4 MG PO (08:52)
[2025-03-18] MEDS: FARXIGA 10 MG PO (08:52)
[2025-03-18] MEDS: FLOMAX 0.4 MG PO (08:52)
[2025-03-18 11:30] VITALS: BP 132/69
--- NOTE | 2025-03-18 11:35 | W.DS.TRANS ---
DC Summary - Principal Database Developer
-
Discharge Instructions:
Discharge Diagnosis/Procedures BPH s/p TURP
Diet Regular
Activity No strenuous activity
Additional Activity No strenuous activity, heavy lifting >20 lbs,
sexual activity, or heavy exercise for 1 week
after surgery.
Driving Restrictions No driving for 24 hours
Bathing Restrictions None
Blood Work not applicable
Wound Care not applicable
Instructions:
Stand-Alone Forms:
Changes to Home Medications: No
Discharge Medications:
DC Medications w/original date entered in [employer]
tamsulosin 0.4 mg capsule 0.4 mg PO BID Urinary issue 02/17/21
dabigatran etexilate 150 mg capsule (Pradaxa) 150 mg PO BID 01/23/23
Held on 03/18/25. Instructions: Resume on 03/20/25.
ezetimibe 10 mg tablet (Zetia) 10 mg PO QPM High Cholesterol 02/05/24
finasteride 5 mg tablet 5 mg PO HS Urinary Issue 02/05/24
pantoprazole 40 mg tablet,delayed release (Protonix) 40 mg PO BID Gastrointestinal Issue 02/05/24
rosuvastatin 10 mg tablet (Crestor) 10 mg PO QPM High Cholesterol 02/05/24
dapagliflozin propanediol 10 mg tablet (Farxiga) 10 mg PO DAILY Heart disease/condition #30 tabs 02/08/24
metoprolol succinate 50 mg tablet,extended release 24 hr 50 mg PO BID #30 tabs 02/09/24
polyethylene glycol 3350 17 gram oral powder packet (HealthyLax) 17 g PO DAILY PRN constipation 03/14/25
ciprofloxacin HCl 500 mg tablet 500 mg PO BID 5 days #10 tabs 03/18/25
phenazopyridine 200 mg tablet (Pyridium) 200 mg PO BID PRN dysuria 4 days #8 tabs 03/18/25
Home Medication Changes
Pending Results: Yes
Additional Pending Results:
surgical pathology
== END 2025-03-18 12:11 | disposition home or self-care (01) ==
LOC: SDS 06:21
PROVIDERS: ATTENDING PHYSICIAN Surgery
DX: N40.1 Benign prostatic hyperplasia with lower urinary tract symptoms (principal); R35.0 Frequency of micturition; N39.41 Urge incontinence; R33.8 Other retention of urine
CPT/HCPCS: 52601; 80048; 85025; 88305

== ENCOUNTER → 2025-03-25 06:41 | Outpatient (REF) | payer MEDICARE, OTHER, SELFPAY | LOC: HWRAD 06:41 | PROVIDERS: ATTENDING PHYSICIAN Internal Medicine Gastroenterology; FAMILY PHYSICIAN Family Medicine | DX: R63.4 Abnormal weight loss (principal) | CPT/HCPCS: 76700 ==

== ENCOUNTER → 2025-03-27 06:54 | Outpatient (REF) | payer MEDICARE, OTHER, SELFPAY ==
[2025-03-27 07:37] LABS: Hematocrit 50.7 % (39.0-52.0); Hemoglobin 16.8 g/dL (13.0-18.0); Mean Corp Hgb Conc. 33.1 g/dL (33.0-37.0); Mean Corpuscular Volume 89.9 fL (80.0-94.0); Nucleated Red Blood Cells % 0 % (-); Platelet Count 146 10^3/uL (130-400); Red Cell Dist. Width 15.1 % (11.5-14.5)
[2025-03-27 08:11] LABS: ALT (SGPT) 17 U/L (0-50); AST (SGOT) 18 U/L (17-59); Albumin 4.2 g/dl (3.5-5.0); Alkaline Phosphatase 57 U/L (38-126); Blood Urea Nitrogen 11 mg/dl (9-20); Calcium 9.3 mg/dl (8.4-10.2); Carbon Dioxide 30 mmol/L (22-30); Chloride 105 mmol/L (98-107); Glucose 93 mg/dl (70-99); Potassium 4.3 mmol/L (3.5-5.1); Sodium 140 mmol/L (135-145); Total Protein 7.1 g/dl (6.3-8.2); eGFR > 60.00
[2025-03-27 08:18] LABS: C-Reactive Protein 18.70 mg/L (0.0-10.00)
== END ==
LOC: REG 06:54
PROVIDERS: ATTENDING PHYSICIAN Internal Medicine Rheumatology; FAMILY PHYSICIAN Family Medicine
DX: M31.6 Other giant cell arteritis (principal)
CPT/HCPCS: 36415; 80053; 85025; 85652; 86140

== ENCOUNTER → 2025-03-28 08:41 | Outpatient (REF) | payer MEDICARE, OTHER, SELFPAY | LOC: CLAB 08:41 | PROVIDERS: ATTENDING PHYSICIAN Surgery | DX: N39.0 Urinary tract infection, site not specified (principal) | CPT/HCPCS: 87086; 87147 ==